=== PATIENT | female | born 1950 | race Two or more races ===

== ENCOUNTER 2017-06-30 03:20 | Inpatient (IN) | payer MEDICAID ==
[~2017-06-30] VITALS: Ht 152.4 cm; Wt 74.8 kg
[2017-06-30] VITALS (8 sets, daily range): BP systolic 145–176; BP diastolic 69–91
--- NOTE | 2017-06-30 03:27 | Emergency Room Report ---
History of Present Illness General Chief Complaint: Dyspnea/Respdistress Source: Patient, Family Member, EMS Present Illness HPI This is a 66-year-old female with a history of renal failure on hemodialysis. Dialysis days are Monday, Monday, and Fridays. Patient also has history of tracheostomy. She present with chief complaint of shortness of breath. Onset one day. Worse tonight. Per EMS she was very hypoxic. They gave her a breathing treatment and blood pressure was also very high. They gave her nitroglycerin spray x3. No fever or chills. No nausea no vomiting. No pain. Worse with exertion. Allergies: Coded Allergies: AMOXICILLIN (Verified Allergy, Unknown, UNSPECIFIED, 06/30/17) Patient History Past Medical History: see triage record, old chart reviewed, HTN, renal disease , dialysis Past Surgical History: other Pertinent Family History: none Social History: Denies: smoking Now: No Immunizations: other Reviewed Nursing Documentation: PMH: Agreed, PSxH: Agreed Review of Systems Eye: Denies: eye pain, blurred vision ENT: Denies: ear pain, nose congestion, throat swelling Respiratory: Reports: cough, shortness of breath Cardiovascular: Denies: chest pain, palpitations Gastrointestinal: Denies: abdominal pain, diarrhea, nausea, vomiting Musculoskeletal: Denies: back pain, joint pain Skin: Denies: rash Neurological: Denies: headache, numbness Endocrine: Denies: increased thirst, increased urine Hematologic/Lymphatic: Denies: easy bruising All Other Systems: negative except mentioned in HPI Physical Exam vitals with hypoxia and hypotension Sp02 EP Interpretation: abnormal General Appearance: moderate distress Head: normocephalic, atraumatic Eyes: bilateral eye PERRL, bilateral eye EOMI ENT: hearing grossly normal, normal pharynx Neck: full range of motion, supple, no meningismus, tracheotomy Respiratory: chest non-tender, decreased breath sounds, accessory muscle use, rales, rhonchi Cardiovascular #1: regular rate, rhythm, no murmur Gastrointestinal: normal bowel sounds, non tender, no mass, no organomegaly, no bruit, non-distended Musculoskeletal: back normal, normal range of motion Neurologic: alert, oriented x3, responsive Psychiatric: mood/affect normal Skin: warm/dry Procedures Critical Care Time Critical Care Time Critical care is mandated in this patient who presented with respiratory distress secondary to pulmonary edema. Patient require my urgent intervention to attenuate the risks of respiratory collapse which may lead to cardiovascular collapse and . Critical care time is 35 minutes excluding any reportable procedure. Critical care time included evaluation, multiple reevaluation, looking at old charts, interpreting laboratory and diagnostic data, discussing case with patient and family and consultants, and charting. Medical Decision Making Diagnostic Impression: Primary Impression: Pulmonary edema Qualified Codes: J81.0 - Acute pulmonary edema Additional Impressions: Hypertensive emergency Respiratory failure, acute and chronic Qualified Codes: J96.21 - Acute and chronic respiratory failure with hypoxia ER Course Patient presents with acute respiratory distress secondary to pulmonary edema. She would need dialysis. She refused he placed on ventilator. He improved slowly with Lasix and nitroglycerin.. Patient will need dialysis. Laboratory Tests Test 06/30/17 03:50 White Blood Count 9.5 K/UL (4.8-10.8) Red Blood Count 4.72 M/UL (4.20-5.40) Hemoglobin 13.0 G/DL (12.0-16.0) Hematocrit 42.9 % (37.0-47.0) Mean Corpuscular Volume 91 FL (80-99) Mean Corpuscular Hemoglobin 27.6 PG (27.0-31.0) Mean Corpuscular Hemoglobin Concent 30.4 G/DL (32.0-36.0) L Red Cell Distribution Width 15.6 % (11.6-14.8) H Platelet Count 292 K/UL (150-450) Mean Platelet Volume 6.2 FL (6.5-10.1) L Neutrophils (%) (Auto) 80.8 % (45.0-75.0) H Lymphocytes (%) (Auto) 14.3 % (20.0-45.0) L Monocytes (%) (Auto) 4.3 % (1.0-10.0) Eosinophils (%) (Auto) 0.1 % (0.0-3.0) Basophils (%) (Auto) 0.5 % (0.0-2.0) Prothrombin Time 10.0 SEC (9.30-11.50) Prothromb Time International Ratio 1.0 (0.9-1.1) Activated Partial Thromboplast Time 26 SEC (23-33) Sodium Level 138 mEQ/L (135-145) Potassium Level 5.9 mEQ/L (3.4-4.9) H Chloride Level 97 mEQ/L (98-107) L Carbon Dioxide Level 27 mEQ/L (20-30) Anion Gap 14 (5-15) Blood Urea Nitrogen 37 mg/dL (7-23) H Creatinine 4.5 mg/dL (0.5-0.9) H Estimat Glomerular Filtration Rate 9.8 mL/min (>60) Glucose Level 154 mg/dL (74-106) H Calcium Level 9.2 mg/dL (8.6-10.2) Total Bilirubin 0.5 mg/dL (0.0-1.2) Aspartate Amino Transf (AST/SGOT) 35 U/L (5-40) Alanine Aminotransferase (ALT/SGPT) 9 U/L (3-33) Alkaline Phosphatase 100 U/L (35-104) Total Creatine Kinase 48 U/L (26-140) Creatine Kinase MB Pending Troponin I < 0.30 ng/mL (<=0.30) Pro-B-Type Natriuretic Peptide Pending Total Protein 7.7 g/dL (6.6-8.7) Albumin 3.4 g/dL (3.5-5.2) L Globulin 4.3 g/dL Albumin/Globulin Ratio 0.7 (1.0-2.7) L Lab Results Impression labs with elevated BNP EKG Diagnostic Results Rate: normal, tachycardiac Rhythm: NSR ST Segments: no acute changes Rhythm Strip Diag. Results Rhythm Strip Time: 04:24 EP Interpretation: yes Rate: 93 Rhythm: NSR, no PVC's, no ectopy Chest X-Ray Diagnostic Results Chest X-Ray Diagnostic Results : Chest X-Ray Ordered: Yes # of Views/Limited/Complete: 1 View Indication: Shortness of Breath EP Interpretation: Yes Interpretation: no consolidation, no pneumothorax, other - pulmonary edema Impression: Other - pulmonary edema Electronically Signed by: Electronically signed by Jaxon Pringle MD Status: improved Disposition: ADMITTED INPATIENT Condition: Serious JAXON PRINGLE M.D. Jun 30, 2017 03:27
[2017-06-30] MEDS ORDERED: Ipratropium 0.02% Inh Soln 2.5ml UD HHN ONE (03:30)
[2017-06-30] MEDS ORDERED: Albuterol ud Inhalation HHN ONE (03:30)
[2017-06-30 03:56] LABS: BASOPHILS % (AUTO) 0.5 % (0.0-2.0); EOSINOPHILS % (AUTO) 0.1 % (0.0-3.0); LYMPHOCYTES % (AUTO) 14.3 % (20.0-45.0); MEAN CORPUSCULAR HEMOGLOBIN 27.6 PG (27.0-31.0); MEAN CORPUSCULAR HGB CONC 30.4 G/DL (32.0-36.0); MEAN CORPUSCULAR VOLUME 91 FL (80-99); MEAN PLATELET VOLUME 6.2 FL (6.5-10.1); MONOCYTES % (AUTO) 4.3 % (1.0-10.0); NEUTROPHILS % (AUTO) 80.8 % (45.0-75.0); PLATELET COUNT 292 K/UL (150-450); RED BLOOD COUNT 4.72 M/UL (4.20-5.40); RED CELL DISTRIBUTION WIDTH 15.6 % (11.6-14.8); WHITE BLOOD COUNT 9.5 K/UL (4.8-10.8)
[2017-06-30] MEDS ORDERED: VITAMIN D400 INTLU ORAL (04:04)
[2017-06-30] MEDS ORDERED: CARAFATE1 G1 ORAL (04:04)
[2017-06-30] MEDS ORDERED: MIRTAZAPINE15 M3 ORAL (04:04)
[2017-06-30] MEDS ORDERED: FUROSEMIDE40 MG ORAL (04:04)
[2017-06-30] MEDS ORDERED: MONTELUKAST SOD10 MG ORAL (04:04)
[2017-06-30] MEDS ORDERED: FAMOTIDINE20 MG ORAL (04:04)
[2017-06-30] MEDS ORDERED: VITAMIN D250000 UNI1 ORAL (04:04)
[2017-06-30] MEDS ORDERED: ROCALTROL0.5 MCG PO (04:04)
[2017-06-30] MEDS ORDERED: SODIUM BICARBO650 MG PO (04:04)
[2017-06-30] MEDS ORDERED: OMEPRAZOLE PO (04:04)
[2017-06-30] MEDS ORDERED: TYLENOL EXTRA500 MG ORAL (04:04)
[2017-06-30] MEDS ORDERED: SENNA8.6 M2 PO (04:05)
[2017-06-30 04:12] LABS: ALANINE AMINOTRANSFERASE 9 U/L (3-33); ALBUMIN/GLOBULIN RATIO 0.7 (1.0-2.7); ANION GAP 14 (5-15); ASPARTATE AMINO TRANSFERASE 35 U/L (5-40); CALCIUM 9.2 mg/dL (8.6-10.2); CARBON DIOXIDE 27 mEQ/L (20-30); CHLORIDE 97 mEQ/L (98-107); CREATININE 4.5 mg/dL (0.5-0.9); GLOMERULAR FILTRATION RATE 9.8 mL/min (>60); HEMOLYSIS 140; SODIUM 138 mEQ/L (135-145); TOTAL PROTEIN 7.7 g/dL (6.6-8.7)
[2017-06-30 04:15] LABS: TROPONIN I < 0.30 ng/mL (<=0.30)
[2017-06-30 04:17] LABS: POTASSIUM 5.9 mEQ/L (3.4-4.9)
[2017-06-30 04:22] LABS: CKMB < 1.5 ng/mL (< 3.8)
[2017-06-30] MEDS ORDERED: NOVOLOG MI100 UNITS/ SUBQ (05:42)
[2017-06-30] MEDS ORDERED: LABETALOL HCL200 MG ORAL (05:42)
[2017-06-30] MEDS ORDERED: LORazepam Inj 2mg/ml 1ml IV PRN (07:00)
[2017-06-30] MEDS ORDERED: Morphine Sulfate 4mg/ml Inj IVP PRN (07:00)
[2017-06-30] MEDS ORDERED: Promethazine/Codeine 5ml UD ORAL PRN (07:00)
[2017-06-30] MEDS ORDERED: Miralax 17gm pkt ORAL PRN (07:00)
[2017-06-30] MEDS ORDERED: Aztreonam Inj 1 GM in NS 50 ML IVPB ONE (08:30)
[2017-06-30] MEDS: DuoNeb 0.5-3(2.5)mg/3ml neb HHN PRN ×2 (08:50→13:29)
--- NOTE | 2017-06-30 09:21 | Consultation ---
History of Present Illness General Date patient seen: Jun 30, 2017 Time patient seen: 08:30 Chief Complaint: Dyspnea/Respdistress Referring physician: dr Garcia Reason for Consultation: pulmonary consult Present Illness HPI 66 y/old female with PMH of ESRD, on HD, chronic respiratory failure, tracheostomy dependent, HTN,. DM presented with chief complaint of shortness of breath. Onset x1 day, worse supine Per EMS she was very hypoxic. Received breathing treatment Blood pressure was elevated denied chest pain, dizziness, palpitations Given by EMS nitroglycerin spray x3. workup in ED revealed CXR c/w pulmonary edema afebrile, no leucocytosis K-5.9 BUN/Cr-37/4.5- c/w ESRD [place]- [id number] troponin -negative ECG with ST no acute ischemic changes RR 26 placed on FiO2 40% via trach with sat 100% BP 166/91 patient was admitted for further management Allergies: Coded Allergies: MORPHINE (Verified Allergy, Mild, Rash, 06/30/17) PENICILLINS (Verified Allergy, Mild, Rash, 06/30/17) AMOXICILLIN (Verified Allergy, Unknown, UNSPECIFIED, 06/30/17) Medication History Scheduled Ergocalciferol (Vitamin D2)* (Vitamin D*), 50,000 UNIT ORAL Q MONDAY, (Reported) Famotidine (Famotidine), 20 MG ORAL DAILY, (Reported) Furosemide* (Lasix*), 2 TAB ORAL BID, (Reported) Labetalol Hcl* (Normodyne*), 200 MG ORAL EVERY 8 HOURS, (Reported) Mirtazapine* (Mirtazapine*), 15 MG ORAL BEDTIME, (Reported) Montelukast Sodium* (Montelukast Sodium*), 10 MG ORAL DAILY, (Reported) Sennosides (Senna), 8.6 MG PO BEDTIME, (Reported) Sodium Bicarbonate* (Nahco3*), 650 MG PO DAILY, (Reported) Sucralfate* (Carafate*), 1 GM ORAL FOUR TIMES A DAY, (Reported) Vitamin D (Vitamin D3), 1,000 UNITS ORAL DAILY, (Reported) Scheduled PRN Acetaminophen* (Tylenol Extra Strength*), 1,000 MG ORAL Q6H PRN for Mild Pain/ Temp > 100.5, (Reported) Miscellaneous Medications Calcitriol (Calcitriol), 0.25 MCG PO, (Reported) Insulin Aspart (Novolog Mix 70-30 Flexpen Syrn), 25 UNITS SUBQ, (Reported) Durable Medical Equipment [Omeprazole], CAP PO DAILY, (Reported), (DME) Patient History Healthcare decision maker Resuscitation status Advanced Directive on File Past Medical/Surgical History Past Medical/Surgical History: (1) Chronic respiratory failure (2) Tracheostomy dependence (3) Diabetes (4) ESRD (end stage renal disease) (5) HTN (hypertension) Review of Systems Constitutional: Reports: weakness Eye: Reports: no symptoms ENT: Reports: no symptoms Respiratory: Reports: see HPI Cardiovascular: Reports: see HPI, other - HTN Gastrointestinal: Reports: no symptoms Genitourinary: Reports: other - ESRD, on HD Musculoskeletal: Reports: no symptoms Skin: Reports: no symptoms Psychiatric: Reports: no symptoms Neurological: Reports: no symptoms Endocrine: Reports: other - DM Hematologic/Lymphatic: Reports: no symptoms Physical Exam Lines, tubes and drains: peripheral, trach HEENT: normocephalic, atraumatic, anicteric, mucous membranes moist Neck: supple Respiratory/Chest: crackles/rales - at bases Cardiovascular/Chest: normal peripheral pulses, normal rate - SR on tele, regular rhythm, other - R chest HD catheter Abdomen: normal bowel sounds, non tender, soft Extremities: non-tender, no calf tenderness, normal capillary refill Skin Exam: warm/dry Neurologic: alert, responsive Musculoskeletal: normal muscle bulk Last 24 Hour Vital Signs Date Time Temp Pulse Resp B/P (MAP) Pulse Ox O2 Delivery O2 Flow Rate FiO2 06/30/17 08:05 94 23 177/90 100 Trach Collar 10.0 06/30/17 07:38 98.0 92 18 176/76 100 Trach Collar 10.0 06/30/17 06:00 82 19 171/84 100 Trach Collar 8.0 40 06/30/17 04:30 98.0 84 21 168/69 100 Trach Collar 8.0 40 06/30/17 04:15 90 20 97 Trach Collar 8.0 40 06/30/17 03:52 95 20 98 Trach Collar 8.0 06/30/17 03:51 95 20 Trach Collar 8.0 06/30/17 03:48 97.9 96 26 164/91 100 Trach Collar 8.0 40 06/30/17 03:48 8.0 40 06/30/17 03:48 96 26 Trach Collar 8.0 40 06/30/17 03:22 99.1 109 24 166/91 92 Trach Collar 8.0 Laboratory Tests Test 06/30/17 03:50 White Blood Count 9.5 K/UL (4.8-10.8) Red Blood Count 4.72 M/UL (4.20-5.40) Hemoglobin 13.0 G/DL (12.0-16.0) Hematocrit 42.9 % (37.0-47.0) Mean Corpuscular Volume 91 FL (80-99) Mean Corpuscular Hemoglobin 27.6 PG (27.0-31.0) Mean Corpuscular Hemoglobin Concent 30.4 G/DL (32.0-36.0) L Red Cell Distribution Width 15.6 % (11.6-14.8) H Platelet Count 292 K/UL (150-450) Mean Platelet Volume 6.2 FL (6.5-10.1) L Neutrophils (%) (Auto) 80.8 % (45.0-75.0) H Lymphocytes (%) (Auto) 14.3 % (20.0-45.0) L Monocytes (%) (Auto) 4.3 % (1.0-10.0) Eosinophils (%) (Auto) 0.1 % (0.0-3.0) Basophils (%) (Auto) 0.5 % (0.0-2.0) Prothrombin Time 10.0 SEC (9.30-11.50) Prothromb Time International Ratio 1.0 (0.9-1.1) Activated Partial Thromboplast Time 26 SEC (23-33) Sodium Level 138 mEQ/L (135-145) Potassium Level 5.9 mEQ/L (3.4-4.9) H Chloride Level 97 mEQ/L (98-107) L Carbon Dioxide Level 27 mEQ/L (20-30) Anion Gap 14 (5-15) Blood Urea Nitrogen 37 mg/dL (7-23) H Creatinine 4.5 mg/dL (0.5-0.9) H Estimat Glomerular Filtration Rate 9.8 mL/min (>60) Glucose Level 154 mg/dL (74-106) H Calcium Level 9.2 mg/dL (8.6-10.2) Total Bilirubin 0.5 mg/dL (0.0-1.2) Aspartate Amino Transf (AST/SGOT) 35 U/L (5-40) Alanine Aminotransferase (ALT/SGPT) 9 U/L (3-33) Alkaline Phosphatase 100 U/L (35-104) Total Creatine Kinase 48 U/L (26-140) Creatine Kinase MB < 1.5 ng/mL (< 3.8) Creatine Kinase MB Relative Index 3.1 Troponin I < 0.30 ng/mL (<=0.30) Pro-B-Type Natriuretic Peptide 65350 pg/mL (0-125) H Total Protein 7.7 g/dL (6.6-8.7) Albumin 3.4 g/dL (3.5-5.2) L Globulin 4.3 g/dL Albumin/Globulin Ratio 0.7 (1.0-2.7) L Height (Feet): 5 Height (Inches): 1.00 Weight (Pounds): 165 Medications Current Medications Medications (Trade) Dose Ordered Sig/Leeroy Route PRN Reason Start Time Stop Time Status Last Admin Dose Admin Acetaminophen (Tylenol) 650 mg Q4H PRN ORAL T>100.5 06/30/17 07:00 07/30/17 06:59 Albuterol/ Ipratropium (DuoNeb 0.5-3(2.5)mg/3ml) 3 ml Q4H PRN HHN Shortness of Breath 06/30/17 07:00 07/05/17 06:59 Aztreonam 0.5 gm/ Dextrose 55 ml @ 110 mls/hr Q12HR IVPB 06/30/17 21:00 07/07/17 20:59 Aztreonam 1 gm/ Sodium Chloride 50 ml @ 100 mls/hr ONCE ONCE IVPB 06/30/17 08:30 06/30/17 08:59 Dextrose (Dextrose 50%) STAT PRN IV Hypoglycemia 06/30/17 07:00 07/30/17 06:59 Heparin Sodium (Porcine) (Heparin 5000 units/ml) 5,000 units EVERY 12 HOURS SUBQ 06/30/17 09:00 07/30/17 08:59 Insulin Aspart (NovoLOG) BEFORE MEALS AND HS SUBQ 06/30/17 11:30 07/30/17 11:29 Labetalol HCl (Normodyne) 200 mg EVERY 8 HOURS ORAL 06/30/17 14:00 07/30/17 13:59 Lorazepam (Ativan 2mg/ml 1ml) 2 mg Q2H PRN IV For Anxiety 06/30/17 07:00 07/07/17 06:59 Mirtazapine (Remeron) 15 mg BEDTIME ORAL 06/30/17 21:00 07/30/17 20:59 Morphine Sulfate (Morphine Sulfate) 4 mg Q4H PRN IVP Severe Pain (Pain Scale 7-10) 06/30/17 07:00 07/07/17 06:59 Ondansetron HCl (Zofran) 4 mg Q6H PRN IVP Nausea & Vomiting 06/30/17 07:00 07/30/17 06:59 Polyethylene Glycol (Miralax) 17 gm DAILYPRN PRN ORAL Constipation 06/30/17 07:00 07/30/17 06:59 Promethazine HCl/ Codeine (Phenergan with Codeine) 5 ml Q4H PRN ORAL For Cough 06/30/17 07:00 07/30/17 06:59 Sodium Chloride 1,000 ml @ 50 mls/hr Q20H IV 06/30/17 08:00 07/30/17 07:59 06/30/17 08:40 Sucralfate (Carafate) 1 gm FOUR TIMES A DAY ORAL 06/30/17 09:00 07/30/17 08:59 Vancomycin HCl (Vanco rx to dose) 1 ea DAILY PRN MISC . 06/30/17 07:30 07/30/17 07:29 Vancomycin HCl/ Dextrose 250 ml @ 125 mls/hr ONCE ONCE IVPB 06/30/17 09:30 06/30/17 11:29 Assessment/Plan Assessment/Plan ASSESSMENT acute on chronic respiratory failure pulmonary edema HTN urgency ESRD, on HD DM Hyperkalemia History of tracheomalacia, status post tracheostomy. PLAN OF CARE tele titrate FiO2 to keep sat above 92% pulmonary toilet [facility] nephro eval HD today monitor pro BNP fup with CXR monitor renal parameters, lytes, correct as needed Kayexalate- as per nephro discretion if HD can t be done YUMIKO BP management with labetalol and optimize as needed BS management with SS of insulin, check HgA1c DVT prophayxlsi case discussed and evaluated by supervising physician Esvin (Werner),Kim FERRER Jun 30, 2017 09:21
[2017-06-30] MEDS ORDERED: Vancomycin 1.5 GM/D5W 250ML IVPB ONE (09:30)
--- NOTE | 2017-06-30 09:37 | Consultation ---
Consult Note Consult Note asked to evaluate for dialysis management Started dialysis this year at [facility] DM HTN s/p Trach Obese Dialysis M W Fr has right permacath his is a 66-year-old female with a history of renal failure on hemodialysis. Dialysis days are Monday, Monday, and Fridays. Patient also has history of tracheostomy. She present with chief complaint of shortness of breath. Onset one day. Worse tonight. Per EMS she was very hypoxic. They gave her a breathing treatment and blood pressure was also very high. They gave her nitroglycerin spray x3. No fever or chills. No nausea no vomiting. No pain. Worse with exertion. Allergies: Coded Allergies: AMOXICILLIN (Verified Allergy, Unknown, UNSPECIFIED, 06/30/17) Interviewed daughter at bed side Data reviewed Assessment/Plan Status: acute on chronic respiratory failure pulmonary edema HTN urgency ESRD, on HD DM Hyperkalemia PLAN OF CARE HD YUMIKO tele titrate FiO2 to keep sat above 92% pulmonary toilet trach care fup with CXR monitor renal parameters, lytes, correct as needed BP management BS management with SS of insulin, check HgA1c DVT prophayxlsi Per orders NOEMI FREEDMAN Jun 30, 2017 09:37
[2017-06-30] MEDS: Sucralfate 1gm tab ORAL SCH ×4 (10:25→20:37)
[2017-06-30] MEDS: Montelukast 10mg tablet ORAL SCH (10:26)
[2017-06-30] MEDS: Heparin 5000 units/ml inj SUBQ SCH ×2 (10:29→20:39)
[2017-06-30] MEDS ORDERED: Vitamin D 50,000 units cap ORAL SCH (11:00)
--- NOTE | 2017-06-30 11:24 | Diagnostic Imaging Report ---
Indication: SOB Technique: One view of the chest Comparison: 03/08/2006 Findings: There is extensive bilateral diffuse interstitial and alveolar parenchymal disease. No definite effusions. The heart size is normal. There is a right chest tunneled dialysis catheter now present. Tracheostomy is again demonstrated. Impression: Extensive bilateral diffuse pulmonary parenchymal disease, infiltrates versus edema. Other findings as noted
[2017-06-30] MEDS: NovoLOG Insulin Flexpen SUBQ SCH ×3 (11:44→20:48)
[2017-06-30] MEDS: Labetalol 200mg tab ORAL SCH ×2 (14:00→21:46)
--- NOTE | 2017-06-30 15:16 | History & Physical ---
History and Physical History & Physicial Rico Garcia MD Jun 30, 2017 15:16
--- NOTE | 2017-06-30 16:59 | Consultation ---
Consult Note Consult Note ID CONSULT: Renuka# [id number] Assessment/Plan ASSESSMENT: 66 y/o female with: // Bilateral pulmonary edema vs r/o CAP - SCx pending - CXR 06/30: Extensive bilateral diffuse pulmonary parenchymal disease, infiltrates versus edema. - BNP >68K // Afebrile without leukocytosis // Acute on chronic respiratory failure / trach collar // ESRD / HD // HTN urgency // DM2 // PCN allergy // Full Code PLAN: - continue empiric IV vancomycin, aztreonam d# 1 for now. May limit soon if no active infection identified - check echo to assess systolic function - f/u cultures - monitor CBC, temperatures - monitor CXR - ultrafiltration per renal Thanks! Will follow JI SIMEON Jun 30, 2017 16:59
[2017-06-30] MEDS: DuoNeb 0.5-3(2.5)mg/3ml neb HHN SCH (19:13)
[2017-06-30] MEDS: Aztreonam 0.5gm/D5W 55ml IVPB SCH ×2 (21:45)
[2017-06-30] MEDS ORDERED: Vancomycin 1 GM in D5W 275 ML IV SCH (23:00)
[2017-07-01 05:18] LABS: BASOPHILS % (AUTO) 0.7 % (0.0-2.0); MEAN CORPUSCULAR HEMOGLOBIN 28.1 PG (27.0-31.0); MEAN CORPUSCULAR HGB CONC 31.2 G/DL (32.0-36.0); MEAN CORPUSCULAR VOLUME 90 FL (80-99); MEAN PLATELET VOLUME 6.8 FL (6.5-10.1); MONOCYTES % (AUTO) 5.4 % (1.0-10.0); NEUTROPHILS % (AUTO) 77.8 % (45.0-75.0); PLATELET COUNT 222 K/UL (150-450); RED BLOOD COUNT 4.01 M/UL (4.20-5.40); RED CELL DISTRIBUTION WIDTH 15.4 % (11.6-14.8); WHITE BLOOD COUNT 5.4 K/UL (4.8-10.8)
[2017-07-01 05:23] LABS: HEMOGLOBIN A1C 4.6 % (< 6.0)
[2017-07-01 05:32] LABS: ALBUMIN/GLOBULIN RATIO 0.9 (1.0-2.7); CALCIUM 8.6 mg/dL (8.6-10.2); CHOLESTEROL/HDL RATIO 3.2 (3.3-4.4); CREATININE 4.4 mg/dL (0.5-0.9); POTASSIUM 3.6 mEQ/L (3.4-4.9); TOTAL PROTEIN 7.1 g/dL (6.6-8.7)
[2017-07-01 05:33] LABS: ANION GAP 12 (5-15); CALCIUM 8.7 mg/dL (8.6-10.2); CARBON DIOXIDE 31 mEQ/L (20-30); CHLORIDE 94 mEQ/L (98-107); CREATININE 4.4 mg/dL (0.5-0.9); HEMOLYSIS 0; PHOSPHORUS 3.7 mg/dL (2.5-4.8); POTASSIUM 3.7 mEQ/L (3.4-4.9); SODIUM 137 mEQ/L (135-145); URIC ACID 3.9 mg/dL (3.0-7.5)
[2017-07-01 05:45] LABS: THYROID STIMULATING HORMONE 2.71 uIU/mL (0.300-4.500)
[2017-07-01] MEDS: Labetalol 200mg tab ORAL SCH ×3 (06:26→22:39)
[2017-07-01] MEDS: NovoLOG Insulin Flexpen SUBQ SCH ×4 (06:29→22:43)
[2017-07-01] MEDS: DuoNeb 0.5-3(2.5)mg/3ml neb HHN SCH ×3 (07:52→19:30)
[2017-07-01 08:08] VITALS: BP 138/60
[2017-07-01] MEDS: Montelukast 10mg tablet ORAL SCH (08:47)
[2017-07-01] MEDS: Sucralfate 1gm tab ORAL SCH ×4 (08:47→22:39)
[2017-07-01] MEDS: Aztreonam 0.5gm/D5W 55ml IVPB SCH ×4 (08:48→21:31)
[2017-07-01] MEDS: Heparin 5000 units/ml inj SUBQ SCH ×2 (08:49→22:41)
--- NOTE | 2017-07-01 08:52 | Infectious Diseases Prog Note ---
Assessment/Plan Assessment/Plan 66 y/o female with: // Bilateral pulmonary edema vs r/o CAP - SCx pending - CXR 06/30: Extensive bilateral diffuse pulmonary parenchymal disease, infiltrates versus edema. - BNP >68K // Afebrile without leukocytosis // Acute on chronic respiratory failure / trach collar // ESRD / HD // HTN urgency // DM2 // PCN allergy // Full Code PLAN: - continue empiric IV vancomycin, aztreonam d# 2 for now. May limit soon if no active infection identified - check echo to assess systolic function - f/u cultures - monitor CBC, temperatures - monitor CXR - ultrafiltration per renal Thanks! Will follow updated son at bedside. Subjective Allergies: Coded Allergies: MORPHINE (Verified Allergy, Mild, Rash, 06/30/17) PENICILLINS (Verified Allergy, Mild, Rash, 06/30/17) AMOXICILLIN (Verified Allergy, Unknown, UNSPECIFIED, 06/30/17) Subjective afebrile no leukocytosis at RA feeling better today Objective Vital Signs Last 24 Hour Vital Signs Date Time Temp Pulse Resp B/P (MAP) Pulse Ox O2 Delivery O2 Flow Rate FiO2 07/01/17 08:47 82 138/60 07/01/17 08:41 82 07/01/17 08:08 98.2 75 19 138/60 98 Room Air 07/01/17 07:59 84 16 99 Room Air 07/01/17 07:52 98 Room Air 07/01/17 07:52 Room Air 07/01/17 07:52 80 16 98 Room Air 07/01/17 06:26 140 60/79 07/01/17 03:39 79 07/01/17 01:26 98 Trach Collar 8.0 30 07/01/17 01:26 Trach Collar 8.0 30 06/30/17 23:37 85 06/30/17 23:35 97.5 86 20 149/79 96 Mechanical Ventilator 06/30/17 21:46 92 145/79 06/30/17 19:54 97.7 92 20 145/79 98 Mechanical Ventilator 06/30/17 19:28 95 06/30/17 19:23 85 18 99 Trach Collar 8.0 30 06/30/17 19:13 97 Trach Collar 8.0 30 06/30/17 19:13 82 18 98 Trach Collar 8.0 30 06/30/17 19:13 Trach Collar 8.0 30 06/30/17 16:20 Trach Collar 06/30/17 16:00 98.2 81 20 168/75 99 T-piece 30 06/30/17 16:00 79 06/30/17 14:00 96 158/84 06/30/17 13:29 98 T-piece 8.0 30 06/30/17 13:29 T-piece 8.0 30 06/30/17 12:45 Trach Collar 06/30/17 12:00 96 06/30/17 12:00 98.3 95 21 158/84 98 06/30/17 10:26 94 177/90 06/30/17 09:00 86 18 99 Trach Collar 8.0 30 Height (Feet): 5 Height (Inches): 1.00 Weight (Pounds): 165 Objective Lines, tubes and drains: peripheral, trach HEENT: normocephalic, atraumatic, anicteric, mucous membranes moist Neck: supple Respiratory/Chest: crackles/rales - at bases Cardiovascular/Chest: normal peripheral pulses, normal rate - SR on tele, regular rhythm, other - R chest HD catheter Abdomen: normal bowel sounds, non tender, soft Extremities: non-tender, no calf tenderness, normal capillary refill Skin Exam: warm/dry Neurologic: alert, responsive Musculoskeletal: normal muscle bulk Laboratory Tests Test 07/01/17 04:10 White Blood Count 5.4 K/UL (4.8-10.8) Red Blood Count 4.01 M/UL (4.20-5.40) L Hemoglobin 11.3 G/DL (12.0-16.0) L Hematocrit 36.1 % (37.0-47.0) L Mean Corpuscular Volume 90 FL (80-99) Mean Corpuscular Hemoglobin 28.1 PG (27.0-31.0) Mean Corpuscular Hemoglobin Concent 31.2 G/DL (32.0-36.0) L Red Cell Distribution Width 15.4 % (11.6-14.8) H Platelet Count 222 K/UL (150-450) Mean Platelet Volume 6.8 FL (6.5-10.1) Neutrophils (%) (Auto) 77.8 % (45.0-75.0) H Lymphocytes (%) (Auto) 16.0 % (20.0-45.0) L Monocytes (%) (Auto) 5.4 % (1.0-10.0) Eosinophils (%) (Auto) 0.0 % (0.0-3.0) Basophils (%) (Auto) 0.7 % (0.0-2.0) Sodium Level 137 mEQ/L (135-145) Potassium Level 3.7 mEQ/L (3.4-4.9) Chloride Level 94 mEQ/L (98-107) L Carbon Dioxide Level 31 mEQ/L (20-30) H Anion Gap 12 (5-15) Blood Urea Nitrogen 33 mg/dL (7-23) H Creatinine 4.4 mg/dL (0.5-0.9) H Estimat Glomerular Filtration Rate 10.0 mL/min (>60) Glucose Level 229 mg/dL (74-106) H Hemoglobin A1c 4.6 % (< 6.0) Uric Acid 3.9 mg/dL (3.0-7.5) Calcium Level 8.7 mg/dL (8.6-10.2) Phosphorus Level 3.7 mg/dL (2.5-4.8) Magnesium Level 2.0 mg/dL (1.7-2.5) Total Bilirubin 0.6 mg/dL (0.0-1.2) Gamma Glutamyl Transpeptidase 47 U/L (5-36) H Aspartate Amino Transf (AST/SGOT) 15 U/L (5-40) Alanine Aminotransferase (ALT/SGPT) 8 U/L (3-33) Alkaline Phosphatase 100 U/L (35-104) Total Creatine Kinase 32 U/L (26-140) C-Reactive Protein, Quantitative 7.0 mg/dL (< 0.5) H Total Protein 7.1 g/dL (6.6-8.7) Albumin 3.5 g/dL (3.5-5.2) Globulin 3.6 g/dL Albumin/Globulin Ratio 0.9 (1.0-2.7) L Triglycerides Level 134 mg/dL (< 150) Cholesterol Level 165 mg/dL (< 200) LDL Cholesterol 86 mg/dL (60-99) HDL Cholesterol 52 mg/dL (> 60) Cholesterol/HDL Ratio 3.2 (3.3-4.4) L Thyroid Stimulating Hormone (TSH) 2.710 uIU/mL (0.300-4.500) Current Medications Medications (Trade) Dose Ordered Sig/Leeroy Route PRN Reason Start Time Stop Time Status Last Admin Dose Admin Acetaminophen (Tylenol) 650 mg Q4H PRN ORAL T>100.5 06/30/17 07:00 07/30/17 06:59 06/30/17 12:06 Albuterol/ Ipratropium (DuoNeb 0.5-3(2.5)mg/3ml) 3 ml Q4H PRN HHN Shortness of Breath 06/30/17 07:00 07/05/17 06:59 06/30/17 13:29 Albuterol/ Ipratropium (DuoNeb 0.5-3(2.5)mg/3ml) 3 ml TIDRT HHN 06/30/17 19:00 07/05/17 18:59 07/01/17 07:52 Amlodipine Besylate (Norvasc) 10 mg DAILY ORAL 06/30/17 09:45 07/30/17 09:44 07/01/17 08:47 Aztreonam 0.5 gm/ Dextrose 55 ml @ 110 mls/hr Q12HR IVPB 06/30/17 21:00 07/07/17 20:59 07/01/17 08:48 Dextrose (Dextrose 50%) STAT PRN IV Hypoglycemia 06/30/17 07:00 07/30/17 06:59 Ergocalciferol (Drisdol) 50,000 intlu QWEEK ORAL 06/30/17 11:00 07/30/17 10:59 06/30/17 11:40 Heparin Sodium (Porcine) (Heparin 5000 units/ml) 5,000 units EVERY 12 HOURS SUBQ 06/30/17 09:00 07/30/17 08:59 07/01/17 08:49 Insulin Aspart (NovoLOG) BEFORE MEALS AND HS SUBQ 06/30/17 11:30 07/30/17 11:29 07/01/17 06:29 Labetalol HCl (Normodyne) 200 mg EVERY 8 HOURS ORAL 06/30/17 14:00 07/30/17 13:59 07/01/17 06:26 Lansoprazole (Prevacid) 30 mg DAILY ORAL 06/30/17 10:00 07/30/17 09:59 07/01/17 08:47 Lorazepam (Ativan 2mg/ml 1ml) 2 mg Q2H PRN IV For Anxiety 06/30/17 07:00 07/07/17 06:59 Mirtazapine (Remeron) 15 mg BEDTIME ORAL 06/30/17 21:00 07/30/17 20:59 06/30/17 20:37 Montelukast Sodium (Singulair) 10 mg DAILY ORAL 06/30/17 10:00 07/30/17 09:59 07/01/17 08:47 Ondansetron HCl (Zofran) 4 mg Q6H PRN IVP Nausea & Vomiting 06/30/17 07:00 07/30/17 06:59 Polyethylene Glycol (Miralax) 17 gm DAILYPRN PRN ORAL Constipation 06/30/17 07:00 07/30/17 06:59 Sucralfate (Carafate) 1 gm FOUR TIMES A DAY ORAL 06/30/17 09:00 07/30/17 08:59 07/01/17 08:47 Vancomycin HCl (Vanco rx to dose) 1 ea DAILY PRN MISC . 06/30/17 07:30 07/30/17 07:29 Mali Mai M.D. Jul 01, 2017 08:52
--- NOTE | 2017-07-01 09:29 | Diagnostic Imaging Report ---
Indication: Shortness of breath Technique: XRAY CHEST 1 V Comparison: 06/30/17 Findings: Right internal jugular permacath is again noted. Tracheostomy is present. There is a significantly improved bilateral interstitial and airspace pulmonary edema. Mild residual interstitial and right basilar airspace disease is again noted. Osseous structures are stable. Impression: Significantly improved pulmonary edema with mild residual.
[2017-07-01] MEDS ORDERED: Sterile Water For Irrig 2000ml IRRIG ONE (10:42)
[2017-07-01] MEDS ORDERED: 1/2 NS 1000ml IV ONE (10:42)
[2017-07-01] MEDS ORDERED: Tubing IV Secondary IV ONE (10:42)
--- NOTE | 2017-07-01 10:52 | General Progress Note ---
Assessment/Plan Status: stable Assessment/Plan Status: acute on chronic respiratory failure pulmonary edema HTN urgency ESRD, on HD - dialysed 06/30 DM Hyperkalemia PLAN OF CARE HD as needed off tele ? titrate FiO2 to keep sat above 92% pulmonary toilet trach care fup with CXR monitor renal parameters, lytes, correct as needed BP management BS management with SS of insulin, check HgA1c DVT prophayxlsi Per orders Subjective ROS Limited/Unobtainable: No Constitutional: Reports: malaise Allergies: Coded Allergies: MORPHINE (Verified Allergy, Mild, Rash, 06/30/17) PENICILLINS (Verified Allergy, Mild, Rash, 06/30/17) AMOXICILLIN (Verified Allergy, Unknown, UNSPECIFIED, 06/30/17) Objective Last 24 Hour Vital Signs Date Time Temp Pulse Resp B/P (MAP) Pulse Ox O2 Delivery O2 Flow Rate FiO2 07/01/17 08:47 82 138/60 07/01/17 08:41 82 07/01/17 08:08 98.2 75 19 138/60 98 Room Air 07/01/17 07:59 84 16 99 Room Air 07/01/17 07:52 98 Room Air 07/01/17 07:52 Room Air 07/01/17 07:52 80 16 98 Room Air 07/01/17 06:26 140 60/79 07/01/17 03:39 79 07/01/17 01:26 98 Trach Collar 8.0 30 07/01/17 01:26 Trach Collar 8.0 30 06/30/17 23:37 85 06/30/17 23:35 97.5 86 20 149/79 96 Mechanical Ventilator 06/30/17 21:46 92 145/79 06/30/17 19:54 97.7 92 20 145/79 98 Mechanical Ventilator 06/30/17 19:28 95 06/30/17 19:23 85 18 99 Trach Collar 8.0 30 06/30/17 19:13 97 Trach Collar 8.0 30 06/30/17 19:13 82 18 98 Trach Collar 8.0 30 06/30/17 19:13 Trach Collar 8.0 30 06/30/17 16:20 Trach Collar 06/30/17 16:00 98.2 81 20 168/75 99 T-piece 30 06/30/17 16:00 79 06/30/17 14:00 96 158/84 9/22/17 13:29 98 T-piece 8.0 30 06/30/17 13:29 T-piece 8.0 30 06/30/17 12:45 Trach Collar 06/30/17 12:00 96 06/30/17 12:00 98.3 95 21 158/84 98 Intake and Output 07/01/17 07/02/17 19:00 07:00 Intake Total 120 ml Balance 120 ml Intake Oral 120 ml Laboratory Tests 07/01/17 04:10: White Blood Count 5.4, Red Blood Count 4.01L, Hemoglobin 11.3L, Hematocrit 36.1L , Mean Corpuscular Volume 90, Mean Corpuscular Hemoglobin 28.1, Mean Corpuscular Hemoglobin Concent 31.2L, Red Cell Distribution Width 15.4H, Platelet Count 222, Mean Platelet Volume 6.8, Neutrophils (%) (Auto) 77.8H, Lymphocytes (%) (Auto) 16.0L, Monocytes (%) (Auto) 5.4, Eosinophils (%) (Auto) 0.0, Basophils (%) (Auto) 0.7, Sodium Level 137, Potassium Level 3.7, Chloride Level 94L, Carbon Dioxide Level 31H, Anion Gap 12, Blood Urea Nitrogen 33H, Creatinine 4.4H, Estimat Glomerular Filtration Rate 10.0, Glucose Level 229H, Hemoglobin A1c 4.6, Uric Acid 3.9, Calcium Level 8.7, Phosphorus Level 3.7, Magnesium Level 2.0, Total Bilirubin 0.6, Gamma Glutamyl Transpeptidase 47H, Aspartate Amino Transf (AST/SGOT) 15, Alanine Aminotransferase (ALT/SGPT) 8, Alkaline Phosphatase 100, Total Creatine Kinase 32, C-Reactive Protein, Quantitative 7.0H, Total Protein 7.1, Albumin 3.5, Globulin 3.6, Albumin/ Globulin Ratio 0.9L, Triglycerides Level 134, Cholesterol Level 165, LDL Cholesterol 86, HDL Cholesterol 52, Cholesterol/HDL Ratio 3.2L, Thyroid Stimulating Hormone (TSH) 2.710 Height (Feet): 5 Height (Inches): 1.00 Weight (Pounds): 165 General Appearance: no apparent distress EENT: other - trach Respiratory/Chest: decreased breath sounds Abdomen: soft NOEMI FREEDMAN Jul 01, 2017 10:52
--- NOTE | 2017-07-01 11:11 | Pulmonology Progress Note ---
Assessment/Plan Assessment/Plan ASSESSMENT acute on chronic respiratory failure pulmonary edema possible PNA HTN urgency-resolved ESRD, on HD DM Hyperkalemia -resolved anemia History of tracheomalacia, status post tracheostomy. systolic dysfunction with EF 40-45% PLAN OF CARE transfer to MD titrate FiO2 to keep sat above 92% pulmonary toilet trach care nephro follows s/p HD monitor pro BNP fup CXR 07/01, today - Significantly improved pulmonary edema with mild residual. monitor renal parameters, lytes, correct as needed K stable empiric abx, ID follows, fup with cx , medical management of CHF as per PMD /outpatient , no evidence of acute decompensation patient on BB and low dose of diuretic, may benefit form low dose of GLEN SOB was due to fluid overload BP management with labetalol and optimize as needed, improving BS management with SS of insulin, HgA1c -4.6 at goal DVT prophylaxis monitor HH, mild anemia, likely due to ESRD dc plan soon case discussed and evaluated by supervising physician Subjective Allergies: Coded Allergies: MORPHINE (Verified Allergy, Mild, Rash, 06/30/17) PENICILLINS (Verified Allergy, Mild, Rash, 06/30/17) AMOXICILLIN (Verified Allergy, Unknown, UNSPECIFIED, 06/30/17) Subjective feeling better respiratory status improving HD done 06/30 BP better mild anemia Objective Last 24 Hour Vital Signs Date Time Temp Pulse Resp B/P (MAP) Pulse Ox O2 Delivery O2 Flow Rate FiO2 07/01/17 08:47 82 138/60 07/01/17 08:41 82 07/01/17 08:08 98.2 75 19 138/60 98 Room Air 07/01/17 07:59 84 16 99 Room Air 07/01/17 07:52 98 Room Air 07/01/17 07:52 Room Air 07/01/17 07:52 80 16 98 Room Air 07/01/17 06:26 140 60/79 07/01/17 03:39 79 07/01/17 01:26 98 Trach Collar 8.0 30 07/01/17 01:26 Trach Collar 8.0 30 06/30/17 23:37 85 06/30/17 23:35 97.5 86 20 149/79 96 Mechanical Ventilator 06/30/17 21:46 92 145/79 06/30/17 19:54 97.7 92 20 145/79 98 Mechanical Ventilator 06/30/17 19:28 95 06/30/17 19:23 85 18 99 Trach Collar 8.0 30 06/30/17 19:13 97 Trach Collar 8.0 30 06/30/17 19:13 82 18 98 Trach Collar 8.0 30 06/30/17 19:13 Trach Collar 8.0 30 06/30/17 16:20 Trach Collar 06/30/17 16:00 98.2 81 20 168/75 99 T-piece 30 06/30/17 16:00 79 06/30/17 14:00 96 158/84 06/30/17 13:29 98 T-piece 8.0 30 06/30/17 13:29 T-piece 8.0 30 06/30/17 12:45 Trach Collar 06/30/17 12:00 96 06/30/17 12:00 98.3 95 21 158/84 98 Intake and Output 07/01/17 07/02/17 19:00 07:00 Intake Total 120 ml Balance 120 ml Intake Oral 120 ml Objective General:awake, alert, oriented female in NAD, trach dependent Lines, tubes and drains: peripheral, trach HEENT: normocephalic, atraumatic, anicteric, mucous membranes moist Neck: supple Respiratory/Chest: few crackles at bases Cardiovascular/Chest: normal peripheral pulses, normal rate , SR on tele, regular rhythm, R chest HD catheter Abdomen: normal bowel sounds, non tender, soft Extremities: non-tender, no calf tenderness, normal capillary refill Skin Exam: warm/dry Neurologic: alert, responsive Musculoskeletal: normal muscle bulk Laboratory Tests 07/01/17 04:10: White Blood Count 5.4, Red Blood Count 4.01L, Hemoglobin 11.3L, Hematocrit 36.1L , Mean Corpuscular Volume 90, Mean Corpuscular Hemoglobin 28.1, Mean Corpuscular Hemoglobin Concent 31.2L, Red Cell Distribution Width 15.4H, Platelet Count 222, Mean Platelet Volume 6.8, Neutrophils (%) (Auto) 77.8H, Lymphocytes (%) (Auto) 16.0L, Monocytes (%) (Auto) 5.4, Eosinophils (%) (Auto) 0.0, Basophils (%) (Auto) 0.7, Sodium Level 137, Potassium Level 3.7, Chloride Level 94L, Carbon Dioxide Level 31H, Anion Gap 12, Blood Urea Nitrogen 33H, Creatinine 4.4H, Estimat Glomerular Filtration Rate 10.0, Glucose Level 229H, Hemoglobin A1c 4.6, Uric Acid 3.9, Calcium Level 8.7, Phosphorus Level 3.7, Magnesium Level 2.0, Total Bilirubin 0.6, Gamma Glutamyl Transpeptidase 47H, Aspartate Amino Transf (AST/SGOT) 15, Alanine Aminotransferase (ALT/SGPT) 8, Alkaline Phosphatase 100, Total Creatine Kinase 32, C-Reactive Protein, Quantitative 7.0H, Total Protein 7.1, Albumin 3.5, Globulin 3.6, Albumin/ Globulin Ratio 0.9L, Triglycerides Level 134, Cholesterol Level 165, LDL Cholesterol 86, HDL Cholesterol 52, Cholesterol/HDL Ratio 3.2L, Thyroid Stimulating Hormone (TSH) 2.710 Current Medications Medications (Trade) Dose Ordered Sig/Leeroy Route PRN Reason Start Time Stop Time Status Last Admin Dose Admin Acetaminophen (Tylenol) 650 mg Q4H PRN ORAL T>100.5 06/30/17 07:00 07/30/17 06:59 06/30/17 12:06 Albuterol/ Ipratropium (DuoNeb 0.5-3(2.5)mg/3ml) 3 ml Q4H PRN HHN Shortness of Breath 06/30/17 07:00 07/05/17 06:59 06/30/17 13:29 Albuterol/ Ipratropium (DuoNeb 0.5-3(2.5)mg/3ml) 3 ml TIDRT HHN 06/30/17 19:00 07/05/17 18:59 07/01/17 07:52 Amlodipine Besylate (Norvasc) 10 mg DAILY ORAL 06/30/17 09:45 07/30/17 09:44 07/01/17 08:47 Aztreonam 0.5 gm/ Dextrose 55 ml @ 110 mls/hr Q12HR IVPB 06/30/17 21:00 07/07/17 20:59 07/01/17 08:48 Dextrose (Dextrose 50%) STAT PRN IV Hypoglycemia 06/30/17 07:00 07/30/17 06:59 Ergocalciferol (Drisdol) 50,000 intlu QWEEK ORAL 06/30/17 11:00 07/30/17 10:59 06/30/17 11:40 Heparin Sodium (Porcine) (Heparin 5000 units/ml) 5,000 units EVERY 12 HOURS SUBQ 06/30/17 09:00 07/30/17 08:59 07/01/17 08:49 Insulin Aspart (NovoLOG) BEFORE MEALS AND HS SUBQ 06/30/17 11:30 07/30/17 11:29 07/01/17 06:29 Labetalol HCl (Normodyne) 200 mg EVERY 8 HOURS ORAL 06/30/17 14:00 07/30/17 13:59 07/01/17 06:26 Lansoprazole (Prevacid) 30 mg DAILY ORAL 06/30/17 10:00 07/30/17 09:59 07/01/17 08:47 Lorazepam (Ativan 2mg/ml 1ml) 2 mg Q2H PRN IV For Anxiety 06/30/17 07:00 07/07/17 06:59 Mirtazapine (Remeron) 15 mg BEDTIME ORAL 06/30/17 21:00 07/30/17 20:59 06/30/17 20:37 Montelukast Sodium (Singulair) 10 mg DAILY ORAL 06/30/17 10:00 07/30/17 09:59 07/01/17 08:47 Ondansetron HCl (Zofran) 4 mg Q6H PRN IVP Nausea & Vomiting 06/30/17 07:00 07/30/17 06:59 Polyethylene Glycol (Miralax) 17 gm DAILYPRN PRN ORAL Constipation 06/30/17 07:00 07/30/17 06:59 Sucralfate (Carafate) 1 gm FOUR TIMES A DAY ORAL 06/30/17 09:00 07/30/17 08:59 07/01/17 08:47 Vancomycin HCl (Vanco rx to dose) 1 ea DAILY PRN MISC . 06/30/17 07:30 07/30/17 07:29 Kim Mcallister NP ([facility]) Jul 01, 2017 11:11
[2017-07-01 12:00] VITALS: BP 149/75
--- NOTE | 2017-07-01 14:52 | Internal Med Progress Note ---
Subjective Date of Service: Jul 01, 2017 Physician Name IvoryBrinda Attending Physician Rico Garcia MD Current Medications Medications (Trade) Dose Ordered Sig/Leeroy Route PRN Reason Start Time Stop Time Status Last Admin Dose Admin Acetaminophen (Tylenol) 650 mg Q4H PRN ORAL T>100.5 06/30/17 07:00 07/30/17 06:59 06/30/17 12:06 Albuterol/ Ipratropium (DuoNeb 0.5-3(2.5)mg/3ml) 3 ml Q4H PRN HHN Shortness of Breath 06/30/17 07:00 07/05/17 06:59 06/30/17 13:29 Albuterol/ Ipratropium (DuoNeb 0.5-3(2.5)mg/3ml) 3 ml TIDRT HHN 06/30/17 19:00 07/05/17 18:59 07/01/17 14:26 Amlodipine Besylate (Norvasc) 10 mg DAILY ORAL 06/30/17 09:45 07/30/17 09:44 07/01/17 08:47 Aztreonam 0.5 gm/ Dextrose 55 ml @ 110 mls/hr Q12HR IVPB 06/30/17 21:00 07/07/17 20:59 07/01/17 08:48 Dextrose (Dextrose 50%) STAT PRN IV Hypoglycemia 06/30/17 07:00 07/30/17 06:59 Ergocalciferol (Drisdol) 50,000 intlu QWEEK ORAL 06/30/17 11:00 07/30/17 10:59 06/30/17 11:40 Heparin Sodium (Porcine) (Heparin 5000 units/ml) 5,000 units EVERY 12 HOURS SUBQ 06/30/17 09:00 07/30/17 08:59 07/01/17 08:49 Insulin Aspart (NovoLOG) BEFORE MEALS AND HS SUBQ 06/30/17 11:30 07/30/17 11:29 07/01/17 11:26 Labetalol HCl (Normodyne) 200 mg EVERY 8 HOURS ORAL 06/30/17 14:00 07/30/17 13:59 07/01/17 14:16 Lansoprazole (Prevacid) 30 mg DAILY ORAL 06/30/17 10:00 07/30/17 09:59 07/01/17 08:47 Lorazepam (Ativan 2mg/ml 1ml) 2 mg Q2H PRN IV For Anxiety 06/30/17 07:00 07/07/17 06:59 Mirtazapine (Remeron) 15 mg BEDTIME ORAL 06/30/17 21:00 07/30/17 20:59 06/30/17 20:37 Montelukast Sodium (Singulair) 10 mg DAILY ORAL 06/30/17 10:00 07/30/17 09:59 07/01/17 08:47 Ondansetron HCl (Zofran) 4 mg Q6H PRN IVP Nausea & Vomiting 06/30/17 07:00 07/30/17 06:59 Polyethylene Glycol (Miralax) 17 gm DAILYPRN PRN ORAL Constipation 06/30/17 07:00 07/30/17 06:59 Sucralfate (Carafate) 1 gm FOUR TIMES A DAY ORAL 06/30/17 09:00 07/30/17 08:59 07/01/17 12:52 Vancomycin HCl (Vanco rx to dose) 1 ea DAILY PRN MISC . 06/30/17 07:30 07/30/17 07:29 Allergies: Coded Allergies: MORPHINE (Verified Allergy, Mild, Rash, 06/30/17) PENICILLINS (Verified Allergy, Mild, Rash, 06/30/17) AMOXICILLIN (Verified Allergy, Unknown, UNSPECIFIED, 06/30/17) ROS Limited/Unobtainable: Yes Subjective 66 YO F admitted with shortness of breath and pneumonia. Trach dependent. Cover for Int Med-Dr Garcia. MIESHA Objective Last Vital Signs Date Time Temp Pulse Resp B/P (MAP) Pulse Ox O2 Delivery O2 Flow Rate FiO2 07/01/17 14:35 84 18 99 Room Air 07/01/17 14:16 140/59 07/01/17 12:00 97.7 07/01/17 01:26 8.0 30 General Appearance: WD/WN, no apparent distress, alert EENT: PERRL/EOMI, normal ENT inspection Neck: non-tender, normal alignment, supple, normal inspection Cardiovascular: normal peripheral pulses, normal rate, regular rhythm, no gallop/murmur, no JVD Respiratory/Chest: chest wall non-tender, no accessory muscle use, crackles/ rales, rhonchi - bilaterally, expiratory wheezing, other - tracheosotmy Abdomen: normal bowel sounds, non tender, soft, no organomegaly, no mass Extremities: normal range of motion Neurologic: silver holloware assembler II-XII grossly normal, no motor/sensory deficits Skin: normal pigmentation, warm/dry Laboratory Tests Test 07/01/17 04:10 White Blood Count 5.4 K/UL (4.8-10.8) Red Blood Count 4.01 M/UL (4.20-5.40) L Hemoglobin 11.3 G/DL (12.0-16.0) L Hematocrit 36.1 % (37.0-47.0) L Mean Corpuscular Volume 90 FL (80-99) Mean Corpuscular Hemoglobin 28.1 PG (27.0-31.0) Mean Corpuscular Hemoglobin Concent 31.2 G/DL (32.0-36.0) L Red Cell Distribution Width 15.4 % (11.6-14.8) H Platelet Count 222 K/UL (150-450) Mean Platelet Volume 6.8 FL (6.5-10.1) Neutrophils (%) (Auto) 77.8 % (45.0-75.0) H Lymphocytes (%) (Auto) 16.0 % (20.0-45.0) L Monocytes (%) (Auto) 5.4 % (1.0-10.0) Eosinophils (%) (Auto) 0.0 % (0.0-3.0) Basophils (%) (Auto) 0.7 % (0.0-2.0) Sodium Level 137 mEQ/L (135-145) Potassium Level 3.7 mEQ/L (3.4-4.9) Chloride Level 94 mEQ/L (98-107) L Carbon Dioxide Level 31 mEQ/L (20-30) H Anion Gap 12 (5-15) Blood Urea Nitrogen 33 mg/dL (7-23) H Creatinine 4.4 mg/dL (0.5-0.9) H Estimat Glomerular Filtration Rate 10.0 mL/min (>60) Glucose Level 229 mg/dL (74-106) H Hemoglobin A1c 4.6 % (< 6.0) Uric Acid 3.9 mg/dL (3.0-7.5) Calcium Level 8.7 mg/dL (8.6-10.2) Phosphorus Level 3.7 mg/dL (2.5-4.8) Magnesium Level 2.0 mg/dL (1.7-2.5) Total Bilirubin 0.6 mg/dL (0.0-1.2) Gamma Glutamyl Transpeptidase 47 U/L (5-36) H Aspartate Amino Transf (AST/SGOT) 15 U/L (5-40) Alanine Aminotransferase (ALT/SGPT) 8 U/L (3-33) Alkaline Phosphatase 100 U/L (35-104) Total Creatine Kinase 32 U/L (26-140) C-Reactive Protein, Quantitative 7.0 mg/dL (< 0.5) H Total Protein 7.1 g/dL (6.6-8.7) Albumin 3.5 g/dL (3.5-5.2) Globulin 3.6 g/dL Albumin/Globulin Ratio 0.9 (1.0-2.7) L Triglycerides Level 134 mg/dL (< 150) Cholesterol Level 165 mg/dL (< 200) LDL Cholesterol 86 mg/dL (60-99) HDL Cholesterol 52 mg/dL (> 60) Cholesterol/HDL Ratio 3.2 (3.3-4.4) L Thyroid Stimulating Hormone (TSH) 2.710 uIU/mL (0.300-4.500) Intake and Output 07/01/17 07/02/17 19:00 07:00 Intake Total 175 ml Balance 175 ml Intake Oral 120 ml IV Total 55 ml Assessment/Plan Problem List: (1) Pneumonia Assessment & Plan: Continue vanco per ID. See pulmonary note. (2) Tracheostomy dependence (3) HTN (hypertension) (4) ESRD (end stage renal disease) Assessment & Plan: Last dialysis 06/30/17. See nephrology note. (5) Diabetes Assessment & Plan: Continue novolog sliding scale. (6) Pulmonary edema Assessment & Plan: Improving with dialysis. (7) Hypertensive emergency Assessment & Plan: Continue labetolol and norvasc. (8) Respiratory failure, acute and chronic Status: progressing BRINDA ANDUJAR Jul 01, 2017 14:52
[2017-07-01 16:00] VITALS: BP 140/74
[2017-07-01 20:00] VITALS: BP 158/79
[2017-07-02] VITALS: BP 136/72
[2017-07-02 04:00] VITALS: BP 144/67
[2017-07-02 05:21] LABS: BASOPHILS % (AUTO) 0.7 % (0.0-2.0); EOSINOPHILS % (AUTO) 0.1 % (0.0-3.0); LYMPHOCYTES % (AUTO) 25.7 % (20.0-45.0); MEAN CORPUSCULAR HEMOGLOBIN 29.5 PG (27.0-31.0); MEAN CORPUSCULAR HGB CONC 32.7 G/DL (32.0-36.0); MEAN CORPUSCULAR VOLUME 90 FL (80-99); MEAN PLATELET VOLUME 6.6 FL (6.5-10.1); MONOCYTES % (AUTO) 9.4 % (1.0-10.0); NEUTROPHILS % (AUTO) 64.1 % (45.0-75.0); PLATELET COUNT 204 K/UL (150-450); RED BLOOD COUNT 3.52 M/UL (4.20-5.40); RED CELL DISTRIBUTION WIDTH 15.4 % (11.6-14.8); WHITE BLOOD COUNT 4.6 K/UL (4.8-10.8)
[2017-07-02 05:33] LABS: CALCIUM 9.3 mg/dL (8.6-10.2); POTASSIUM 4.1 mEQ/L (3.4-4.9)
[2017-07-02] MEDS: Labetalol 200mg tab ORAL SCH ×2 (06:14→14:04)
[2017-07-02] MEDS: NovoLOG Insulin Flexpen SUBQ SCH ×2 (06:16→11:25)
[2017-07-02] MEDS: DuoNeb 0.5-3(2.5)mg/3ml neb HHN SCH ×2 (06:55→12:57)
[2017-07-02 08:00] VITALS: BP 129/78
[2017-07-02] MEDS ORDERED: Vancomycin 1250mg/D5W 250ml IVPB ONE (08:00)
[2017-07-02] MEDS: Heparin 5000 units/ml inj SUBQ SCH (08:38)
[2017-07-02] MEDS: Montelukast 10mg tablet ORAL SCH (08:39)
[2017-07-02] MEDS: Sucralfate 1gm tab ORAL SCH ×2 (08:39→13:08)
--- NOTE | 2017-07-02 08:51 | Infectious Diseases Prog Note ---
Assessment/Plan Assessment/Plan A; Pulmonary edema Pneumonia less likely ESRD on HD DM type 2 Anemia P; Continue Azactam May discontinue Vancomycin Subjective ROS Limited/Unobtainable: Yes Respiratory: Reports: no symptoms Gastrointestinal/Abdominal: Reports: no symptoms Allergies: Coded Allergies: MORPHINE (Verified Allergy, Mild, Rash, 06/30/17) PENICILLINS (Verified Allergy, Mild, Rash, 06/30/17) AMOXICILLIN (Verified Allergy, Unknown, UNSPECIFIED, 06/30/17) Objective Vital Signs Last 24 Hour Vital Signs Date Time Temp Pulse Resp B/P (MAP) Pulse Ox O2 Delivery O2 Flow Rate FiO2 07/02/17 08:37 75 129/78 07/02/17 08:00 97.4 75 20 129/78 96 T-piece 30 07/02/17 06:14 74 144/67 07/02/17 04:00 96.4 74 20 144/67 97 Room Air 07/02/17 03:30 76 07/02/17 00:00 98.0 84 20 136/72 97 Trach Collar 6.0 30 07/01/17 23:33 85 07/01/17 22:39 87 158/79 07/01/17 20:00 98.2 87 24 158/79 100 Trach Collar 6.0 30 07/01/17 19:41 87 16 100 Trach Collar 8.0 30 07/01/17 19:36 Trach Collar 8.0 30 07/01/17 19:36 86 18 98 Trach Collar 8.0 30 07/01/17 19:34 87 07/01/17 19:30 98 Trach Collar 8.0 30 07/01/17 16:00 97.8 87 18 140/74 96 Room Air 07/01/17 16:00 89 07/01/17 14:35 84 18 99 Room Air 07/01/17 14:25 82 18 95 Room Air 07/01/17 14:24 Room Air 07/01/17 14:23 95 Room Air 07/01/17 14:16 79 140/59 07/01/17 12:00 82 07/01/17 12:00 97.7 85 18 149/75 99 T-piece Height (Feet): 5 Height (Inches): 1.00 Weight (Pounds): 165 General Appearance: no acute distress HEENT: status post trach Respiratory/Chest: lungs clear Cardiovascular: normal rate Abdomen: soft, non tender Extremities: no edema Neurologic/Psychiatric: alert, responsive Microbiology Date/Time Source Procedure Growth Status 06/30/17 07:50 Nasal Nares MRSA Culture - Final NO METHICILLIN RESISTANT STAPH AUREUS... Complete Laboratory Tests Test 07/02/17 03:30 White Blood Count 4.6 K/UL (4.8-10.8) L Red Blood Count 3.52 M/UL (4.20-5.40) L Hemoglobin 10.4 G/DL (12.0-16.0) L Hematocrit 31.7 % (37.0-47.0) L Mean Corpuscular Volume 90 FL (80-99) Mean Corpuscular Hemoglobin 29.5 PG (27.0-31.0) Mean Corpuscular Hemoglobin Concent 32.7 G/DL (32.0-36.0) Red Cell Distribution Width 15.4 % (11.6-14.8) H Platelet Count 204 K/UL (150-450) Mean Platelet Volume 6.6 FL (6.5-10.1) Neutrophils (%) (Auto) 64.1 % (45.0-75.0) Lymphocytes (%) (Auto) 25.7 % (20.0-45.0) Monocytes (%) (Auto) 9.4 % (1.0-10.0) Eosinophils (%) (Auto) 0.1 % (0.0-3.0) Basophils (%) (Auto) 0.7 % (0.0-2.0) Sodium Level 136 mEQ/L (135-145) Potassium Level 4.1 mEQ/L (3.4-4.9) Chloride Level 94 mEQ/L (98-107) L Carbon Dioxide Level 28 mEQ/L (20-30) Anion Gap 14 (5-15) Blood Urea Nitrogen 48 mg/dL (7-23) H Creatinine 6.0 mg/dL (0.5-0.9) H Estimat Glomerular Filtration Rate 7.0 mL/min (>60) Glucose Level 202 mg/dL (74-106) H Calcium Level 9.3 mg/dL (8.6-10.2) Random Vancomycin Level 18.7 ug/mL Current Medications Medications (Trade) Dose Ordered Sig/Leeroy Route PRN Reason Start Time Stop Time Status Last Admin Dose Admin Acetaminophen (Tylenol) 650 mg Q4H PRN ORAL Mild Pain/Temp > 100.5 07/01/17 23:30 07/31/17 23:29 07/02/17 00:04 Albuterol/ Ipratropium (DuoNeb 0.5-3(2.5)mg/3ml) 3 ml Q4H PRN HHN Shortness of Breath 06/30/17 07:00 07/05/17 06:59 06/30/17 13:29 Albuterol/ Ipratropium (DuoNeb 0.5-3(2.5)mg/3ml) 3 ml TIDRT HHN 06/30/17 19:00 07/05/17 18:59 07/02/17 06:55 Amlodipine Besylate (Norvasc) 10 mg DAILY ORAL 06/30/17 09:45 07/30/17 09:44 07/02/17 08:37 Aztreonam 0.5 gm/ Dextrose 55 ml @ 110 mls/hr Q12HR IVPB 06/30/17 21:00 07/07/17 20:59 07/01/17 21:31 Dextrose (Dextrose 50%) STAT PRN IV Hypoglycemia 06/30/17 07:00 07/30/17 06:59 Ergocalciferol (Drisdol) 50,000 intlu QWEEK ORAL 06/30/17 11:00 07/30/17 10:59 06/30/17 11:40 Heparin Sodium (Porcine) (Heparin 5000 units/ml) 5,000 units EVERY 12 HOURS SUBQ 06/30/17 09:00 07/30/17 08:59 07/02/17 08:38 Insulin Aspart (NovoLOG) BEFORE MEALS AND HS SUBQ 06/30/17 11:30 07/30/17 11:29 07/02/17 06:16 Labetalol HCl (Normodyne) 200 mg EVERY 8 HOURS ORAL 06/30/17 14:00 07/30/17 13:59 07/02/17 06:14 Lansoprazole (Prevacid) 30 mg DAILY ORAL 06/30/17 10:00 07/30/17 09:59 07/02/17 08:38 Lorazepam (Ativan 2mg/ml 1ml) 2 mg Q2H PRN IV For Anxiety 06/30/17 07:00 07/07/17 06:59 Mirtazapine (Remeron) 15 mg BEDTIME ORAL 06/30/17 21:00 07/30/17 20:59 07/01/17 22:39 Montelukast Sodium (Singulair) 10 mg DAILY ORAL 06/30/17 10:00 07/30/17 09:59 07/02/17 08:39 Ondansetron HCl (Zofran) 4 mg Q6H PRN IVP Nausea & Vomiting 06/30/17 07:00 07/30/17 06:59 Polyethylene Glycol (Miralax) 17 gm DAILYPRN PRN ORAL Constipation 06/30/17 07:00 07/30/17 06:59 Sucralfate (Carafate) 1 gm FOUR TIMES A DAY ORAL 06/30/17 09:00 07/30/17 08:59 07/02/17 08:39 Vancomycin HCl (Vanco rx to dose) 1 ea DAILY PRN MISC . 06/30/17 07:30 07/30/17 07:29 Vancomycin HCl/ Dextrose 250 ml @ 166.667 mls/hr NOW ONCE IVPB 07/02/17 08:00 07/02/17 09:29 07/02/17 07:52 LORRI MARIN Jul 02, 2017 08:51
--- NOTE | 2017-07-02 08:59 | Pulmonology Progress Note ---
Assessment/Plan Assessment/Plan ASSESSMENT acute on chronic respiratory failure pulmonary edema possible PNA HTN urgency-resolved ESRD, on HD DM Hyperkalemia -resolved anemia History of tracheomalacia, status post tracheostomy. systolic dysfunction with EF 40-45% PLAN OF CARE titrate FiO2 to keep sat above 92% , currently trach plugged , stable pulse oximetry pulmonary toilet trach care nephro follows s/p HD monitor pro BNP CXR 07/01 - Significantly improved pulmonary edema with mild residual. monitor renal parameters, lytes, correct as needed K stable empiric abx for possible PNA , ID follows, doubt PNA, no fever, no leucocytosis, no respiratory symptoms, CXR cleared after HD no evidence of infiltrate or consolidation s/p Rx with empiric abx, dc abx ECHO with EF 40-45% medical management of CHF as per PMD /outpatient , no evidence of acute decompensation patient on BB and low dose of diuretic, may benefit form low dose of GLEN SOB was due to fluid overload BP management with labetalol and optimize as needed, improving BS management with SS of insulin, HgA1c -4.6 at goal DVT prophylaxis monitor HH, mild anemia, likely due to ESRD dc today fup with PMD and outpt HD ( next Monday) case discussed and evaluated by supervising physician Subjective Allergies: Coded Allergies: MORPHINE (Verified Allergy, Mild, Rash, 06/30/17) PENICILLINS (Verified Allergy, Mild, Rash, 06/30/17) AMOXICILLIN (Verified Allergy, Unknown, UNSPECIFIED, 06/30/17) Subjective feeling better respiratory status improved trach plugged, on RA, sat stable no signs of respiratory distress afebrile, no leucocytosis HD done 06/30 BP better mild anemia Objective Last 24 Hour Vital Signs Date Time Temp Pulse Resp B/P (MAP) Pulse Ox O2 Delivery O2 Flow Rate FiO2 07/02/17 08:37 75 129/78 07/02/17 08:00 97.4 75 20 129/78 96 T-piece 30 07/02/17 06:14 74 144/67 07/02/17 04:00 96.4 74 20 144/67 97 Room Air 07/02/17 03:30 76 07/02/17 00:00 98.0 84 20 136/72 97 Trach Collar 6.0 30 07/01/17 23:33 85 07/01/17 22:39 87 158/79 07/01/17 20:00 98.2 87 24 158/79 100 Trach Collar 6.0 30 07/01/17 19:41 87 16 100 Trach Collar 8.0 30 07/01/17 19:36 Trach Collar 8.0 30 07/01/17 19:36 86 18 98 Trach Collar 8.0 30 07/01/17 19:34 87 07/01/17 19:30 98 Trach Collar 8.0 30 07/01/17 16:00 97.8 87 18 140/74 96 Room Air 07/01/17 16:00 89 07/01/17 14:35 84 18 99 Room Air 07/01/17 14:25 82 18 95 Room Air 07/01/17 14:24 Room Air 07/01/17 14:23 95 Room Air 07/01/17 14:16 79 140/59 07/01/17 12:00 82 07/01/17 12:00 97.7 85 18 149/75 99 T-piece Intake and Output 07/02/17 07/03/17 19:00 07:00 Intake Total 260 ml Balance 260 ml Intake Oral 260 ml Objective General:awake, alert, oriented female in NAD, trach dependent Lines, tubes and drains: peripheral, trach with FiO2 30% HEENT: normocephalic, atraumatic, anicteric, mucous membranes moist Neck: supple Respiratory/Chest: few crackles at bases Cardiovascular/Chest: normal peripheral pulses, normal rate , SR on tele, regular rhythm, R chest HD catheter Abdomen: normal bowel sounds, non tender, soft Extremities: non-tender, no calf tenderness, normal capillary refill Skin Exam: warm/dry Neurologic: alert, responsive Musculoskeletal: normal muscle bulk Microbiology Date/Time Source Procedure Growth Status 06/30/17 07:50 Nasal Nares MRSA Culture - Final NO METHICILLIN RESISTANT STAPH AUREUS... Complete Laboratory Tests 07/02/17 03:30: White Blood Count 4.6L, Red Blood Count 3.52L, Hemoglobin 10.4L, Hematocrit 31.7L, Mean Corpuscular Volume 90, Mean Corpuscular Hemoglobin 29.5, Mean Corpuscular Hemoglobin Concent 32.7, Red Cell Distribution Width 15.4H, Platelet Count 204, Mean Platelet Volume 6.6, Neutrophils (%) (Auto) 64.1, Lymphocytes (%) (Auto) 25.7, Monocytes (%) (Auto) 9.4, Eosinophils (%) (Auto) 0.1, Basophils (%) (Auto) 0.7, Sodium Level 136, Potassium Level 4.1, Chloride Level 94L, Carbon Dioxide Level 28, Anion Gap 14, Blood Urea Nitrogen 48H, Creatinine 6.0H, Estimat Glomerular Filtration Rate 7.0, Glucose Level 202H, Calcium Level 9.3, Random Vancomycin Level 18.7 Current Medications Medications (Trade) Dose Ordered Sig/Leeroy Route PRN Reason Start Time Stop Time Status Last Admin Dose Admin Acetaminophen (Tylenol) 650 mg Q4H PRN ORAL Mild Pain/Temp > 100.5 07/01/17 23:30 07/31/17 23:29 07/02/17 00:04 Albuterol/ Ipratropium (DuoNeb 0.5-3(2.5)mg/3ml) 3 ml Q4H PRN HHN Shortness of Breath 06/30/17 07:00 07/05/17 06:59 06/30/17 13:29 Albuterol/ Ipratropium (DuoNeb 0.5-3(2.5)mg/3ml) 3 ml TIDRT HHN 06/30/17 19:00 07/05/17 18:59 07/02/17 06:55 Amlodipine Besylate (Norvasc) 10 mg DAILY ORAL 06/30/17 09:45 07/30/17 09:44 07/02/17 08:37 Aztreonam 0.5 gm/ Dextrose 55 ml @ 110 mls/hr Q12HR IVPB 06/30/17 21:00 07/07/17 20:59 07/01/17 21:31 Dextrose (Dextrose 50%) STAT PRN IV Hypoglycemia 06/30/17 07:00 07/30/17 06:59 Ergocalciferol (Drisdol) 50,000 intlu QWEEK ORAL 06/30/17 11:00 07/30/17 10:59 06/30/17 11:40 Heparin Sodium (Porcine) (Heparin 5000 units/ml) 5,000 units EVERY 12 HOURS SUBQ 06/30/17 09:00 07/30/17 08:59 07/02/17 08:38 Insulin Aspart (NovoLOG) BEFORE MEALS AND HS SUBQ 06/30/17 11:30 07/30/17 11:29 07/02/17 06:16 Labetalol HCl (Normodyne) 200 mg EVERY 8 HOURS ORAL 06/30/17 14:00 07/30/17 13:59 07/02/17 06:14 Lansoprazole (Prevacid) 30 mg DAILY ORAL 06/30/17 10:00 07/30/17 09:59 07/02/17 08:38 Lorazepam (Ativan 2mg/ml 1ml) 2 mg Q2H PRN IV For Anxiety 06/30/17 07:00 07/07/17 06:59 Mirtazapine (Remeron) 15 mg BEDTIME ORAL 06/30/17 21:00 07/30/17 20:59 07/01/17 22:39 Montelukast Sodium (Singulair) 10 mg DAILY ORAL 06/30/17 10:00 07/30/17 09:59 07/02/17 08:39 Ondansetron HCl (Zofran) 4 mg Q6H PRN IVP Nausea & Vomiting 06/30/17 07:00 07/30/17 06:59 Polyethylene Glycol (Miralax) 17 gm DAILYPRN PRN ORAL Constipation 06/30/17 07:00 07/30/17 06:59 Sucralfate (Carafate) 1 gm FOUR TIMES A DAY ORAL 06/30/17 09:00 07/30/17 08:59 07/02/17 08:39 Kim Mcallister NP (Vanchtein) Jul 02, 2017 08:59
[2017-07-02] MEDS: Aztreonam 0.5gm/D5W 55ml IVPB SCH ×2 (09:34)
[2017-07-02 12:00] VITALS: BP 148/68
--- NOTE | 2017-07-02 12:56 | General Progress Note ---
Assessment/Plan Status: stable Assessment/Plan Status: acute on chronic respiratory failure pulmonary edema HTN urgency ESRD, on HD - dialysed 06/30 DM Hyperkalemia PLAN OF CARE HD in am off tele ? titrate FiO2 to keep sat above 92% pulmonary toilet trach care fup with CXR monitor renal parameters, lytes, correct as needed BP management BS management with SS of insulin, check HgA1c DVT prophayxlsi Per orders Subjective ROS Limited/Unobtainable: No Allergies: Coded Allergies: MORPHINE (Verified Allergy, Mild, Rash, 06/30/17) PENICILLINS (Verified Allergy, Mild, Rash, 06/30/17) AMOXICILLIN (Verified Allergy, Unknown, UNSPECIFIED, 06/30/17) Objective Last 24 Hour Vital Signs Date Time Temp Pulse Resp B/P (MAP) Pulse Ox O2 Delivery O2 Flow Rate FiO2 07/02/17 08:37 75 129/78 07/02/17 08:00 97.4 75 20 129/78 96 T-piece 30 07/02/17 08:00 72 07/02/17 07:04 30 07/02/17 07:04 76 17 98 Trach Collar 6.0 30 07/02/17 06:55 79 18 96 Trach Collar 6.0 30 07/02/17 06:55 Trach Collar 6.0 30 07/02/17 06:55 96 Room Air 07/02/17 06:14 74 144/67 07/02/17 04:00 96.4 74 20 144/67 97 Room Air 07/02/17 03:30 76 07/02/17 00:00 98.0 84 20 136/72 97 Trach Collar 6.0 30 07/01/17 23:33 85 07/01/17 22:39 87 158/79 07/01/17 20:00 98.2 87 24 158/79 100 Trach Collar 6.0 30 07/01/17 19:41 87 16 100 Trach Collar 8.0 30 07/01/17 19:36 Trach Collar 8.0 30 07/01/17 19:36 86 18 98 Trach Collar 8.0 30 07/01/17 19:34 87 07/01/17 19:30 98 Trach Collar 8.0 30 07/01/17 16:00 97.8 87 18 140/74 96 Room Air 07/01/17 16:00 89 07/01/17 14:35 84 18 99 Room Air 07/01/17 14:25 82 18 95 Room Air 07/01/17 14:24 Room Air 07/01/17 14:23 95 Room Air 07/01/17 14:16 79 140/59 Intake and Output 07/02/17 07/03/17 19:00 07:00 Intake Total 565.000 ml Balance 565.000 ml Intake Oral 260 ml IV Total 305.000 ml Laboratory Tests 07/02/17 03:30: White Blood Count 4.6L, Red Blood Count 3.52L, Hemoglobin 10.4L, Hematocrit 31.7L, Mean Corpuscular Volume 90, Mean Corpuscular Hemoglobin 29.5, Mean Corpuscular Hemoglobin Concent 32.7, Red Cell Distribution Width 15.4H, Platelet Count 204, Mean Platelet Volume 6.6, Neutrophils (%) (Auto) 64.1, Lymphocytes (%) (Auto) 25.7, Monocytes (%) (Auto) 9.4, Eosinophils (%) (Auto) 0.1, Basophils (%) (Auto) 0.7, Sodium Level 136, Potassium Level 4.1, Chloride Level 94L, Carbon Dioxide Level 28, Anion Gap 14, Blood Urea Nitrogen 48H, Creatinine 6.0H, Estimat Glomerular Filtration Rate 7.0, Glucose Level 202H, Calcium Level 9.3, Random Vancomycin Level 18.7 Height (Feet): 5 Height (Inches): 1.00 Weight (Pounds): 165 General Appearance: no apparent distress Objective no signs of CHF NOEMI FREEDMAN Jul 02, 2017 12:56
[2017-07-02 14:04] VITALS: BP 144/72
--- NOTE | 2017-07-02 14:31 | Internal Med Progress Note ---
Subjective Date of Service: Jul 02, 2017 Physician Name Andujar,Brinda Attending Physician Rico Garcia MD Current Medications Medications (Trade) Dose Ordered Sig/Leeroy Route PRN Reason Start Time Stop Time Status Last Admin Dose Admin Acetaminophen (Tylenol) 650 mg Q4H PRN ORAL Mild Pain/Temp > 100.5 07/01/17 23:30 07/31/17 23:29 07/02/17 00:04 Albuterol/ Ipratropium (DuoNeb 0.5-3(2.5)mg/3ml) 3 ml Q4H PRN HHN Shortness of Breath 06/30/17 07:00 07/05/17 06:59 06/30/17 13:29 Albuterol/ Ipratropium (DuoNeb 0.5-3(2.5)mg/3ml) 3 ml TIDRT HHN 06/30/17 19:00 07/05/17 18:59 07/02/17 12:57 Amlodipine Besylate (Norvasc) 10 mg DAILY ORAL 06/30/17 09:45 07/30/17 09:44 07/02/17 08:37 Aztreonam 0.5 gm/ Dextrose 55 ml @ 110 mls/hr Q12HR IVPB 06/30/17 21:00 07/07/17 20:59 07/02/17 09:34 Dextrose (Dextrose 50%) STAT PRN IV Hypoglycemia 06/30/17 07:00 07/30/17 06:59 Ergocalciferol (Drisdol) 50,000 intlu QWEEK ORAL 06/30/17 11:00 07/30/17 10:59 06/30/17 11:40 Heparin Sodium (Porcine) (Heparin 5000 units/ml) 5,000 units EVERY 12 HOURS SUBQ 06/30/17 09:00 07/30/17 08:59 07/02/17 08:38 Insulin Aspart (NovoLOG) BEFORE MEALS AND HS SUBQ 06/30/17 11:30 07/30/17 11:29 07/02/17 11:25 Labetalol HCl (Normodyne) 200 mg EVERY 8 HOURS ORAL 06/30/17 14:00 07/30/17 13:59 07/02/17 14:04 Lansoprazole (Prevacid) 30 mg DAILY ORAL 06/30/17 10:00 07/30/17 09:59 07/02/17 08:38 Lorazepam (Ativan 2mg/ml 1ml) 2 mg Q2H PRN IV For Anxiety 06/30/17 07:00 07/07/17 06:59 Mirtazapine (Remeron) 15 mg BEDTIME ORAL 06/30/17 21:00 07/30/17 20:59 07/01/17 22:39 Montelukast Sodium (Singulair) 10 mg DAILY ORAL 06/30/17 10:00 07/30/17 09:59 07/02/17 08:39 Ondansetron HCl (Zofran) 4 mg Q6H PRN IVP Nausea & Vomiting 06/30/17 07:00 07/30/17 06:59 Polyethylene Glycol (Miralax) 17 gm DAILYPRN PRN ORAL Constipation 06/30/17 07:00 07/30/17 06:59 Sucralfate (Carafate) 1 gm FOUR TIMES A DAY ORAL 06/30/17 09:00 07/30/17 08:59 07/02/17 13:08 Allergies: Coded Allergies: MORPHINE (Verified Allergy, Mild, Rash, 06/30/17) PENICILLINS (Verified Allergy, Mild, Rash, 06/30/17) AMOXICILLIN (Verified Allergy, Unknown, UNSPECIFIED, 06/30/17) ROS Limited/Unobtainable: No Constitutional: Reports: no symptoms HEENT: Reports: no symptoms Cardiovascular: Reports: no symptoms Respiratory: Reports: shortness of breath Gastrointestinal/Abdominal: Reports: no symptoms Genitourinary: Reports: no symptoms Neurologic/Psychiatric: Reports: no symptoms Subjective 66 YO F admitted with shortness of breath and pneumonia. Trach dependent. Cover for Int Joshua-Dr Garcia. [facility] Objective Last Vital Signs Date Time Temp Pulse Resp B/P (MAP) Pulse Ox O2 Delivery O2 Flow Rate FiO2 07/02/17 14:04 86 144/72 07/02/17 12:58 18 96 Room Air 07/02/17 12:00 97.9 30 07/02/17 07:04 6.0 Laboratory Tests Test 07/02/17 03:30 White Blood Count 4.6 K/UL (4.8-10.8) L Red Blood Count 3.52 M/UL (4.20-5.40) L Hemoglobin 10.4 G/DL (12.0-16.0) L Hematocrit 31.7 % (37.0-47.0) L Mean Corpuscular Volume 90 FL (80-99) Mean Corpuscular Hemoglobin 29.5 PG (27.0-31.0) Mean Corpuscular Hemoglobin Concent 32.7 G/DL (32.0-36.0) Red Cell Distribution Width 15.4 % (11.6-14.8) H Platelet Count 204 K/UL (150-450) Mean Platelet Volume 6.6 FL (6.5-10.1) Neutrophils (%) (Auto) 64.1 % (45.0-75.0) Lymphocytes (%) (Auto) 25.7 % (20.0-45.0) Monocytes (%) (Auto) 9.4 % (1.0-10.0) Eosinophils (%) (Auto) 0.1 % (0.0-3.0) Basophils (%) (Auto) 0.7 % (0.0-2.0) Sodium Level 136 mEQ/L (135-145) Potassium Level 4.1 mEQ/L (3.4-4.9) Chloride Level 94 mEQ/L (98-107) L Carbon Dioxide Level 28 mEQ/L (20-30) Anion Gap 14 (5-15) Blood Urea Nitrogen 48 mg/dL (7-23) H Creatinine 6.0 mg/dL (0.5-0.9) H Estimat Glomerular Filtration Rate 7.0 mL/min (>60) Glucose Level 202 mg/dL (74-106) H Calcium Level 9.3 mg/dL (8.6-10.2) Random Vancomycin Level 18.7 ug/mL Microbiology Date/Time Source Procedure Growth Status 06/30/17 07:50 Nasal Nares MRSA Culture - Final NO METHICILLIN RESISTANT STAPH AUREUS... Complete 06/30/17 07:50 Rectum VRE Culture - Final NO VANCOMYCIN RESISTANT ENTEROCOCCUS ... Complete Intake and Output 07/02/17 07/03/17 19:00 07:00 Intake Total 565.000 ml Balance 565.000 ml Intake Oral 260 ml IV Total 305.000 ml Objective General Appearance: WD/WN, no apparent distress, alert EENT: PERRL/EOMI, normal ENT inspection Neck: non-tender, normal alignment, supple, normal inspection Cardiovascular: normal peripheral pulses, normal rate, regular rhythm, no gallop/murmur, no JVD Respiratory/Chest: chest wall non-tender, no accessory muscle use, crackles/ rales, rhonchi - bilaterally, expiratory wheezing, other - tracheosotmy Abdomen: normal bowel sounds, non tender, soft, no organomegaly, no mass Extremities: normal range of motion Neurologic: roadmaster II-XII grossly normal, no motor/sensory deficits Skin: normal pigmentation, warm/dry Assessment/Plan Problem List: (1) Pneumonia Assessment & Plan: Continue vanco per ID. See pulmonary note. (2) Tracheostomy dependence (3) HTN (hypertension) (4) ESRD (end stage renal disease) Assessment & Plan: Next dialysis 07/03/17. See nephrology note. (5) Diabetes Assessment & Plan: Continue novolog sliding scale. (6) Pulmonary edema Assessment & Plan: Improving with dialysis. (7) Hypertensive emergency Assessment & Plan: Continue labetolol and norvasc. (8) Respiratory failure, acute and chronic Status: stable BRINDA ANDUJAR Jul 02, 2017 14:31
--- NOTE | 2017-07-02 14:44 | Cardiology Report ---
APPROVED REPORT EKG Measurement Heart [id number] Normal sinus rhythm Possible Left atrial enlargement Nonspecific ST and T wave abnormality Abnormal ECG
[2017-07-02] MEDS ORDERED: NS 275ml ONE (14:59)
--- NOTE | 2017-07-03 09:45 | Consultation ---
DATE OF CONSULTATION: 06/30/2017 INFECTIOUS DISEASE CONSULTATION REQUESTING PHYSICIAN: Rico Garcia M.D. REASON FOR CONSULTATION: Possible pneumonia. History Of Present Illness: This is a 66-year-old female with a history of chronic respiratory failure and tracheostomy collar, diabetes, and hypertension, admitted on June 30 with shortness of breath and elevated blood pressures. She was brought in by ambulance from home. She is afebrile without leukocytosis, with elevated BNP and a sputum culture pending. Chest x-ray shows bilateral infiltrate versus edema. Her breathing and her blood pressure currently improved. She has been started on empiric IV vancomycin and aztreonam, and ID now consulted to assist in management. PAST MEDICAL HISTORY: 1. Chronic respiratory failure, on a trach collar. 2. Diabetes type 2. 3. Hypertension. 4. Vitamin D deficiency. 5. Depression. 6. GERD. 7. End-stage renal disease, on dialysis. PAST SURGICAL HISTORY: 1. Tracheostomy. 2. Dialysis access. MEDICATIONS: 1. Vancomycin day #1. 2. Aztreonam day #1. 3. Subcutaneous heparin. 4. Carafate. 5. Norvasc. 6. Prevacid. 7. Singulair. 8. Labetalol. 9. Insulin. 10. Mirtazapine. ALLERGIES: 1. Penicillin. 2. Morphine. Social History: The patient lives locally with family. Denies active tobacco, alcohol, or illicit drug abuse. FAMILY HISTORY: Reviewed and noncontributory. Review Of Systems: As per history of present illness. Ten systems reviewed. All pertinent positives and negatives noted. PHYSICAL EXAMINATION: GENERAL: No apparent distress, nontoxic-appearing. Vital Signs: Maximum temperature 99.1, blood pressure 158/84, heart rate in the 90s, respiratory rate 21, and saturating 98% on trach collar. HEENT: Tracheostomy tube in place. CARDIOVASCULAR: Regular rate and rhythm. No murmurs. PULMONARY: Coarse breath sounds bilaterally. ABDOMEN: Bowel sounds present. Soft, nondistended, and nontender. EXTREMITIES: Edema. Laboratory Data: White blood cell count 9.5 with a left shift, hemoglobin 13, and platelets 292. Sodium 138, potassium 5.9, chloride 97, bicarbonate 27, BUN 37, and creatinine 4.5. Liver function test within normal limits. BNP 68,809. Troponin negative x1. MICROBIOLOGY: June 30, sputum culture pending. Imaging: June 30, chest x-ray, bilateral pulmonary edema versus infiltrate. ASSESSMENT: 1. Bilateral pulmonary edema versus rule out community-acquired pneumonia. Sputum culture is pending. Chest x-ray shows extensive bilateral diffuse pulmonary parenchymal disease, infiltrate versus edema. BNP is markedly elevated. 2. Afebrile without leukocytosis. 3. Acute on chronic respiratory failure/tracheostomy collar. 4. End-stage renal disease, on dialysis. 5. Hypertensive urgency. 6. Diabetes type 2. 7. Penicillin allergy. 8. Full Code. PLAN: 1. Continue empiric IV vancomycin and aztreonam day #1 for now. February if no active infection is identified. 2. I would check echocardiogram to assess systolic function. 3. Follow up cultures. 4. Monitor chest x-ray. 5. Monitor CBC and temperatures. 6. Ultrafiltration per Renal. Thank you. We will follow. Marcelo Merritt M.D. DR: SIGRID JOB#: [id number] CC: Rico Garcia M.D.; Fax#: [phone] Chakraborty M.D ; Fax#: [phone]
--- NOTE | 2017-07-03 09:45 | History and Physical Report ---
DATE OF ADMISSION: 06/30/2017 CHIEF COMPLAINT: Shortness of breath and respiratory distress. History Of Present Illness: [facility] 66[facility] past medical history significant for end-stage renal disease, on hemodialysis Monday, Monday, Monday; history of tracheomalacia, status post tracheostomy about 12 years ago; diabetes type 2; hypertension; history of right hip fracture, status post ORIF; and hysterectomy, who has presented to the hospital accompanied with a family member, was noted to have worsening of shortness of breath. EMS was called. The patient was hypoxemic and breathing treatment was given. Blood pressure was monitored to be very high. Nitroglycerin spray was given to the patient. The patient has no fever or chills. No nausea or vomiting. Shortly after initial evaluation, was transferred to the hospital. Upon arrival to the emergency room, the patient was diagnosed with pulmonary edema with hypertensive urgency and then subsequently, the patient was admitted to the hospital for dialysis. Past Medical History/Past Surgical History: As above. History of hypertension; diabetes type 2; end-stage renal disease, on hemodialysis; status post tracheostomy about 12 years ago due to the tracheomalacia; right hip fracture, status post ORIF; and hysterectomy. MEDICATIONS AT HOME: Please review medication reconciliation list. ALLERGIES: To penicillin, morphine, and amoxicillin. SOCIAL HISTORY: No smoking, alcohol, or drugs. Family History: Noncontributory except mother has a history of hypertension and father has a history of diabetes. Review Of Systems: Mostly as above. Complains of shortness of breath and cough. Denies any chest congestion. Denies any hemoptysis or hematochezia. Denies any bright red blood per rectum. PHYSICAL EXAMINATION: Vital Signs: On admission from the ER are significant for temperature 98.0 degrees, pulse of 84, respirations 21, and blood pressure 168/69. GENERAL: The patient is awake, responsive, and in no acute distress. HEAD AND NECK: Pupils are equal and reactive to light. Anicteric. NECK: Supple. No JVD. LUNGS: Tracheostomy site is intact. Chest: Lungs with good air entry. Occasional crackles in the . Chest wall has a dialysis catheter. It was noted in the right side. Abdomen: Soft, nondistended, and nontender. Midline surgical scar from the hysterectomy was noted. Extremities: No cyanosis, clubbing, or edema. Right hip has a surgical scar with erythema around it was noted. Neurologic: Cranial nerves II through XII are grossly normal. The patient is moving all 4 extremities. Laboratory Data: On admission, WBC of 9.5, hemoglobin 13, hematocrit 42, and platelets are 292,000. Sodium 138, potassium 5.9, chloride 97, bicarbonate 27, BUN 37, creatinine 4.5, and glucose is 154. Calcium is 9.2. AST of 35, ALT of 9, and alkaline phosphatase is 100. First troponin less than 0.30. ProBNP of 68,809. PT of 10, INR 1.0, and PTT of 26. Chest x-ray shows extensive bilateral diffuse pulmonary parenchymal disease, infiltrate versus edema. ASSESSMENT: 1. Hypertensive urgency. 2. Acute respiratory failure on chronic. 3. Pulmonary edema. 4. End-stage renal disease, on hemodialysis. 5. Hypertension. 6. Hyperkalemia. 7. Diabetes type 2. 8. History of tracheomalacia, status post tracheostomy. 9. History of right hip fracture with chronic infection. Plan: Admit the patient to [facility]. We will resume home medication. Monitor blood pressure closely. Follow up with the Accu-Chek with sliding scale. Nephrology consultation with Dr. Aguilar and Pulmonary consultation with Dr. Sutton. I discussed the case extensively with the daughter at the bedside. Dialysis is ordered and is being progressed at this time. Code status is Full Code. DVT prophylaxis with heparin subcutaneous. Rico Garcia M.D. DR: ADI JOB#: [id number] CC:
--- NOTE | 2017-07-04 10:21 | Discharge Summary ---
Discharge Summary Hospital Course Date of Admission Jun 30, 2017 at 04:14 Date of Discharge Jul 02, 2017 at 15:00 Admitting Diagnosis Pulmonary edema HPI Dulce Thomas is a 66 year old female who was admitted on Jun 30, 2017 at 04:14 for Pulmonary Edema Hospital Course dc summary #[id number] Discharge Medications Continued Medications: Acetaminophen* (Tylenol Extra Strength*) 500 Mg Tablet 1000 MG ORAL Q6H PRN for Mild Pain/Temp > 100.5, TAB 0 Refills Calcitriol (Calcitriol) 0.25 Mcg Capsule 0.25 MCG PO, CAP Ergocalciferol (Vitamin D2)* (Vitamin D*) 50,000 Unit Capsule [id number] UNIT ORAL Q MONDAY, CAP Famotidine (Famotidine) 20 Mg Tablet 20 MG ORAL DAILY, #30 TAB 0 Refills Furosemide* (Lasix*) 40 Mg Tablet 2 TAB ORAL BID, TAB Insulin Aspart (Novolog Mix 70-30 Flexpen Syrn) 100 Unit/1 Ml Insuln.pen 25 UNITS SUBQ, VIAL Labetalol Hcl* (Normodyne*) 200 Mg Tablet 200 MG ORAL EVERY 8 HOURS, TAB Mirtazapine* (Mirtazapine*) 15 Mg Tablet 15 MG ORAL BEDTIME, TAB Montelukast Sodium* (Montelukast Sodium*) 10 Mg Tablet 10 MG ORAL DAILY, TAB Sennosides (Senna) 8.6 Mg Tablet 8.6 MG PO BEDTIME, TAB Sucralfate* (Carafate*) 1 Gm Tablet 1 GM ORAL FOUR TIMES A DAY, TAB Vitamin D (Vitamin D3) 400 Unit Tablet 1000 UNITS ORAL DAILY, TAB Discontinued Medications: Sodium Bicarbonate* (Nahco3*) 650 Mg Tablet 650 MG PO DAILY, TAB Discharge Condition Upon Discharge: stable Discharge Disposition Patient was discharged to Home () Discharge Diagnoses: Esvin (Vanctiago)Kim NP Jul 04, 2017 10:21
--- NOTE | 2017-07-05 07:45 | Discharge Summary 2 SIG ---
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 Shortness of breath was worse while supine. The patient was hypoxemic and received breathing treatment by paramedics en route. Blood pressure was elevated. Nitroglycerin spray x3 was given by portrait studio photographer. Upon arrival, the patient denied chest pain, dizziness, and palpitation.Workup in the emergency department revealed chest x-ray consistent with pulmonary edema. The patient was afebrile. No leukocytosis. Potassium -5.9, BUN -37, and creatinine -4.5 consistent with history of end-stage renal disease. Pro BNP - 68,809. Troponin was negative. EKG revealed sinus tachycardia but no acute ischemic changes. Respiratory rate -26. The patient was placed on FiO2 of 40% via trach collar with saturation of 100%. Blood pressure was 156/91. The patient was admitted for further management. ADMITTING DIAGNOSES: 1. Acute on chronic respiratory failure. 2. Pulmonary edema. 3. Hypertensive urgency. 4. Tracheostomy status. 5. End-stage renal disease, on hemodialysis. 6. Diabetes. 7. Hyperkalemia. 8. History of tracheomalacia, status post tracheostomy. Hospital Stay: The patient was admitted to [facility]. Supplemental oxygen via trach collar provided to keep saturation above 92%. Pulmonary toilet provided. Trach care provided. Nephrology consult was requested stat for arrangement of urgent hemodialysis. Renal parameters and electrolytes were closely monitored. Kayexalate was administered. Blood pressure was managed with labetalol. Blood sugar was managed with sliding scale of insulin. DVT prophylaxis provided. The patient initially was placed on empiric antibiotic for possible pneumonia. ID followed. Chest x-ray was clear after hemodialysis. No evidence of infiltrate or consolidation. ID doubted pneumonia. No fever. No leukocytosis. No respiratory symptoms. Status post treatment of empiric antibiotic, antibiotic discontinued as per ID recommendation. Echocardiogram revealed ejection fraction of 40% to 45%. Medical management of CHF per PMD as an outpatient. No evidence of acute decompensation. The patient on beta-juan carlos and low dose of diuretic, may benefit from low dose of GLEN inhibitor as per PMD/cardiology discretion. Shortness of breath was due to the fluid overload, which resolved with dialysis. DVT prophylaxis provided. Noted mild anemia likely secondary to end-stage renal disease. Prior to discharge, potassium -4.1. Followup chest x-ray with significant improvement in pulmonary edema with just mild residual. The patient was stable for discharge and follow up with primary medical doctor and outpatient hemodialysis. FINAL DIAGNOSES: 1. Acute on chronic respiratory failure, resolved. 2. Pulmonary edema. 3. Hypertensive urgency, resolved. 4. End-stage renal disease, on hemodialysis. 5. Diabetes mellitus. 6. Hyperkalemia, resolved. 7. Anemia. 8. History of tracheomalacia, status post tracheostomy. 9. Systolic dysfunction with ejection fraction of 40% to 45%. DISCHARGE MEDICATIONS: See medication reconciliation list. DISCHARGE INSTRUCTIONS: The patient was discharged home. Followup: Follow up with primary medical doctor, research professor of biostatistics, and outpatient hemodialysis. Luis Smalls Kim MonroeSt[facility] HospitalZunilda NAngelesPAngeles DR: RADHA JOB#: [id number] CC: SAIRA
--- NOTE | 2017-07-05 14:43 | Cardiology Report ---
APPROVED REPORT EXAM: Two-dimensional and M-mode echocardiogram with Doppler and color Doppler. INDICATION Congestive Heart Failure M-Mode DIMENSIONS IVSd0.8 (0.7-1.1cm)Left Atrium (MM)4.6 (1.6-4.0cm) LVDd6.2 (3.5-5.6cm)Aortic Root2.8 (2.0-3.7cm) PWd0.8 (0.7-1.1cm)Aortic Cusp Exc.1.6 (1.5-2.0cm) LVDs4.9 (2.5-4.0cm) PWs1.0 cm Normal left ventricular chamber size, systolic function and wall motion. Left ventricular ejection fraction estimated to be 55 %. No evidence of left ventricular hypertrophy. No evidence of pericardial effusion. All other cardiac chamber sizes are within normal limits. Focal aortic valve sclerosis with adequate cusp excursion. Thickened mitral valve leaflets with normal excursion. Mitral annulus and aortic root calcification. Pulmonic valve not well visualized. Normal tricuspid valve structure. IVC at normal size with physiologic collapse. A color flow and spectral Doppler study was performed and revealed: Trace aortic regurgitation. Trace mitral regurgitation. Mitral inflow velocities indicates possible pseudo normalization pattern implying moderately elevated left atrial pressure (Grade II). Trace tricuspid regurgitation. Tricuspid systolic velocities suggests peak right ventricular systolic pressure of 16 mmHg Trace pulmonic regurgitation present.
== END 2017-07-02 15:00 | disposition home or self-care (01) | DRG 133 ==
LOC: EDBD 03:20 → EMR 03:32 → 2W 04:14 → EDBEDREQ 05:51
PROC: 5A1D00Z (ICD-10-PCS; principal; 2017-06-30)
DX: J96.20 Acute and chronic respiratory failure, unspecified whether with hypoxia or hypercapnia (principal); E11.22 Type 2 diabetes mellitus with diabetic chronic kidney disease; Z43.0 Encounter for attention to tracheostomy; N18.6 End stage renal disease; I12.0 Hypertensive chronic kidney disease with stage 5 chronic kidney disease or end stage renal disease; E11.8 Type 2 diabetes mellitus with unspecified complications; Z99.2 Dependence on renal dialysis; I16.0 Hypertensive urgency; E87.5 Hyperkalemia; D64.9 Anemia, unspecified; Z88.6 Allergy status to analgesic agent; Z88.1 Allergy status to other antibiotic agents; Z88.0 Allergy status to penicillin; Z79.4 Long term (current) use of insulin; E87.79 Other fluid overload
CPT/HCPCS: 36415; 71010; 80048; 80053; 80061; 80202; 82550; 82553; 82962; 82977; 83036; 83735; 83880; 84100; 84443; 84484; 84550; 85025; 85610; 85730; 86140; 87081; 93005; 93306; 94640; 94664; 94760; 99291; J1815; J7620